=== PATIENT | female | born 1980 | race Caucasian/White ===

== ENCOUNTER → 2016-09-08 | Outpatient (CLI) | payer OTHER ==
[~2016-09-08] MED LIST: ALBUAER2 INH; CETI10TA84 PO; FLUO40CA8 PO; MOME50SP5; OFLO0.3D4 OT; PENC1CRE4 TOP; TIZA4CAP PO; TRAZ50TA35 PO
--- NOTE | 2016-09-08 12:42 | DIAGNOSTIC IMAGING REPORT ---
CT OF THE RIGHT ANKLE PAIN CT DOSE: 161.02 mGy.cm HISTORY: Pain R ANKLE PAIN TECHNIQUE: Multiaxial CT images of the right ankle were performed and reformatted in the sagittal and coronal plane without the use of contrast. COMPARISON: None. FINDINGS: No fracture or dislocation. Soft tissues are unremarkable. All major osseous structures are unremarkable. There is a tiny heel spur. There is no evidence for a tarsal correlation. Subtalar joint is unremarkable. Interosseous ligament appears to be intact. No evidence for loose body. IMPRESSION: Tiny heel spur. Otherwise normal study. Electronically signed by: Bryant Lane M.D. 09/08/2016 12:41 PM Dictated Date/Time: 09/08/2016 12:31 PM
== END | disposition home or self-care (01) ==
LOC: C.CTS 12:04
PROVIDERS: ATTEND Orthopaedic Surgery Sports Medicine
DX: M79.671 Pain in right foot (principal); M77.31 Calcaneal spur, right foot

== ENCOUNTER 2017-10-04 14:15 | Emergency (ER) | payer OTHER ==
[~2017-10-04] VITALS: Ht 160 cm; Wt 64.4 kg
[~2017-10-04 14:15] MED LIST changes: +PENC1CRE33 TOP; -PENC1CRE4 TOP
[2017-10-04 14:18] VITALS: Ht 160 cm; Wt 64.4 kg
--- NOTE | 2017-10-04 15:14 | DIAGNOSTIC IMAGING REPORT ---
TWO VIEW CHEST CLINICAL HISTORY: Cough. FINDINGS: PA and lateral chest radiographs are compared to study dated 08/12/2012 and correlated with chest CT dated 01/29/2009. The cardiomediastinal silhouette is unremarkable. The lungs and pleural spaces are clear. There is no pneumothorax. The bony thorax appears intact. IMPRESSION: No active disease in the chest. Electronically signed by: Иван Wayne M.D. 10/04/2017 3:13 PM Dictated Date/Time: 10/04/2017 3:12 PM
[2017-10-04] MEDS ORDERED: PENI500T2 PO (15:26)
[2017-10-04] MEDS ORDERED: ONDANSETRON HOME PACK 4MG OD TAB PO ONE (15:30)
[2017-10-04] MEDS ORDERED: PENICILLIN V POTASSIUM 250 MG TAB PO ONE (15:30)
[2017-10-04] MEDS ORDERED: ALBUTEROL HFA 8 GM INHALER INH ONE (15:30)
[2017-10-04 16:05] VITALS: BP 121/72; PULSE 72; TEMP 36.7; O2SAT 97
--- NOTE | 2017-10-04 16:34 | EMERGENCY ROOM VISIT NOTE ---
History Report prepared by Ping: Ping Son Under the Supervision of: Dr. Florian Michaud M.D. First contact with patient: 14:20 Chief Complaint: RESPIRATORY PROBLEMS Stated Complaint: CHEST AND THROAT PAIN,NUMB FACE AND HAND History of Present Illness The patient is a 36 year old female who presents to the Emergency Room with complaints of persistent chest tightness starting 2 days ago. The patient reports that she went for a jog 2 days ago outside in the cold. She does not normally jog. Afterwards, she developed sore throat, cough, and chest tightness which has persisted. Yesterday, she started having vomiting and diarrhea with hot and cold flashes which is ongoing today. She is having abdominal cramping. She has numbness in her face, lips, and hands which started today while she was walking. She felt SOB while walking. The symptoms have resolved. She reports pain to her left jaw. She denies any blood in her diarrhea, dental pain, congestion, burning with urination, or ear pain. She denies any sick contacts. She does smoke. Source of History: patient Onset: 2 days ago Position: chest Quality: other (tightness) Timing: other (persistent) Associated Symptoms: + chills, + sorethroat, + cough, + SOB, + vomiting, + abdominal pain, + diarrhea, + numbness, No hematochezia, No urinary symptoms Note: Pt reports left jaw pain. Pt denies dental pain, congestion, ear pain. Review of Systems See HPI for pertinent positives & negatives. A total of 10 systems reviewed and were otherwise negative. Past Medical & Surgical Medical Problems: (1) DEPRESSIVE DISORDER NEC (2) LUMBOSACRAL NEURITIS NOS (3) POSTLAMINECT SYND-LUMBAR Family History No significant family history Social History Smoking Status: Current Every Day Smoker Marital Status: single Occupation Status: disabled Current/Historical Medications Scheduled Penicillin V Potassium (Veetids), 500 MG PO QID Allergies Coded Allergies: Cephalexin (Unverified Allergy, Severe, "BLACKED OUT", 10/04/17) Bacitracin (Unverified Allergy, Intermediate, RASH, 10/04/17) Neomycin (Unverified Allergy, Intermediate, RASH, 10/04/17) Polymyxin B (Unverified Allergy, Intermediate, RASH, 10/04/17) Adhesives (Verified Allergy, Mild, REDDENED RASH, 10/04/17) Latex1 -Allergic Contact Dermititis (Verified Allergy, Mild, rash, 10/04/17) Physical Exam Vital Signs Date Time Temp Pulse Resp B/P (MAP) Pulse Ox O2 Delivery O2 Flow Rate FiO2 10/04/17 14:49 64 20 124/60 97 Room Air 10/04/17 14:41 Room Air 10/04/17 14:18 36.5 98 20 119/69 98 Room Air Physical Exam Constitutional: Vital signs reviewed. Eyes: Pupils are equal round reactive to light. Conjunctiva are noninjected. ENT: Diffuse erythema without exudate or uvular edema or shift. No trismus. Mucous membranes are moist. Neck supple without meningeal signs. Tender cervical lymphadenopathy, especially left sided. Respiratory: Clear to auscultation bilaterally. Breath sounds are equal bilaterally. Cardiovascular: Regular rate and rhythm. No rubs or gallops. GI: Soft, nondistended and nontender. Bowel sounds are present. Musculoskeletal: No peripheral edema. No lower extremity tenderness. Integumentary: No cyanosis. Neurological: The patient is awake and alert. No focal deficits. Psychiatric: Normal affect. Medical Decision & Procedures ER Provider Diagnostic Interpretation: X-ray results as stated below per interpretation by me and the radiologist: TWO VIEW CHEST CLINICAL HISTORY: Cough. FINDINGS: PA and lateral chest radiographs are compared to study dated 08/12/2012 and correlated with chest CT dated 01/29/2009. The cardiomediastinal silhouette is unremarkable. The lungs and pleural spaces are clear. There is no pneumothorax. The bony thorax appears intact. IMPRESSION: No active disease in the chest. Electronically signed by: вИан Wayne M.D. 10/04/2017 3:13 PM Dictated Date/Time: 10/04/2017 3:12 PM Laboratory Results Test 10/04/17 14:37 Date/Time Source Procedure Growth Status 10/04/17 14:27 Throat Group A Streptococcus Screen - Final SPECIMEN POSITIVE FOR GROUP A BETA ST... Complete 10/04/17 14:27 Throat Group A Streptococcus Screen (MAGDY) - Final Complete Laboratory results as reviewed by me. Medications Administered Medications (Trade) Dose Ordered Sig/Raymundo Route Start Time Stop Time Status Last Admin Dose Admin Ondansetron HCl (ZOFRAN ODT 4MG Home Pack) 1 homepack UD ONCE PO 10/04/17 15:30 10/04/17 15:31 DC 10/04/17 16:01 1 HOMEPACK Penicillin V Potassium (Veetids Tab) 500 mg NOW ONCE PO 10/04/17 15:30 10/04/17 15:31 DC 10/04/17 15:38 500 MG Albuterol (Ventolin Hfa Inhaler) 2 puffs NOW ONCE INH 10/04/17 15:30 10/04/17 15:31 DC 10/04/17 15:38 2 PUFFS ECG Per My Interpretation Indication: SOB/dyspnea Rate (beats per minute): 84 Rhythm: normal sinus Findings: other (no ST elevation, no PVC) ED Course 1425: The patient was evaluated in room A9B. A complete history and physical exam was performed. 1437: The patient's strep test is positive. 1446: I reevaluated the patient. I informed her that her strep test is positive. I let her know she will get an X-ray to check for pneumonia. 1519: Upon reevaluation, the patient is resting comfortably. I discussed sivtlana 's findings with her. She says that she is not allergic to penicillin. She verbalized agreement of the treatment plan. She was discharged home. 1530: Albuterol 2 puffs INH, Veetids Tab 500 mg PO, Ondansetron HCl 1 homepack PO. Medical Decision This is a 36-year-old female presents with vomiting, diarrhea, sore throat, chest pain and cough. Differential diagnosis includes strep pharyngitis, bronchitis, pneumonia, foodborne illness, pericarditis. I did perform a limited focused review of portions of the patient's old chart on the electronic medical record. The patient has had no recent pertinent visits to this hospital. I did evaluate the patient as noted above. Patient is presenting with vomiting and diarrhea. She does not have any abdominal tenderness to suggest an acute surgical process. She complains of chest pain with cough and is a smoker. She also has a sore throat with diffuse erythema and tenderness along her jawline due to lymphadenopathy. She did also complain of some paresthesias to her lips and hands but this has resolved. It is unclear whether this may have been related to hyperventilation as she stated she was walking and short of breath at that time. I did advise the patient to stop smoking. I did order a rapid strep test which was positive. I did order and personally review the patient's 12-lead EKG and chest x-ray as described above. Her EKG does not demonstrate any evidence of pericarditis. There is no evidence of acute ischemia. Her chest x-ray shows no evidence of pneumonia. I did discuss the test results with the patient. I did treat the patient with penicillin. She states she is not allergic to penicillin. She was also given a Zofran ODT home pack in case she became nauseated again. She was also given albuterol MDI to help with her cough. She was discharged with a prescription for penicillin. She was advised to follow-up with her doctor and given return instructions as outlined below. Medication Reconcilliation Current Medication List: was personally reviewed by me Blood Pressure Screening Patient's blood pressure: Normal blood pressure Blood pressure disposition: Did not require urgent referral Impression Primary Impression: Strep pharyngitis Additional Impressions: Acute bronchitis Vomiting and diarrhea Scribe Attestation The scribe's documentation has been prepared under my direct and personally reviewed by me in its entirety. I confirm that the note above accurately reflects all work, treatment, procedures, and medical decision making performed by me. Departure Information Dispostion Home / Self-Care Prescriptions Penicillin V Potassium (VEETIDS) 500 Mg Tab 500 MG PO QID, #40 TAB Prov: Florian Michaud M.D. 10/04/17 Referrals Ivy Guzman M.D. (PCP) Forms HOME CARE DOCUMENTATION FORM, IMPORTANT VISIT INFORMATION, WORK / SCHOOL INSTRUCTIONS Patient Instructions Bronchitis Acute, ED Strep Pharyngitis Conf, My [facility] Additional Instructions You have been examined and treated today on an emergency basis only. This is not a substitute for, or an effort to provide, complete comprehensive medical care. It is impossible to recognize and treat all injuries or illnesses in a single emergency department visit. It is therefore important that you follow up closely with your physician. Call as soon as possible for an appointment. Return for worsening symptoms or if you develop an inability to swallow liquids , difficulty breathing or any other concerning symptoms. Problem Qualifiers Additional Impressions: Acute bronchitis Bronchitis organism: unspecified organism Qualified Codes: J20.9 - Acute bronchitis, unspecified
== END 2017-10-04 16:10 | disposition home or self-care (01) ==
LOC: C.EDB 14:16 → C.EDA 16:10
DX: J02.0 Streptococcal pharyngitis (principal); J20.9 Acute bronchitis, unspecified; R11.10 Vomiting, unspecified; R19.7 Diarrhea, unspecified; F32.9 Major depressive disorder, single episode, unspecified; M54.17 Radiculopathy, lumbosacral region; M96.1 Postlaminectomy syndrome, not elsewhere classified; F17.210 Nicotine dependence, cigarettes, uncomplicated; Z88.1 Allergy status to other antibiotic agents; Z88.8 Allergy status to other drugs, medicaments and biological substances; Z91.048 Other nonmedicinal substance allergy status; Z91.040 Latex allergy status

== ENCOUNTER 2017-11-07 15:09 | Emergency (ER) | payer OTHER ==
[~2017-11-07] VITALS: Ht 160 cm; Wt 66.0 kg
[2017-11-07 15:16] VITALS: BP 122/66; PULSE 84; TEMP 36.6; O2SAT 98; Ht 160 cm; Wt 66.0 kg
[2017-11-07] MEDS ORDERED: LIDOCAINE 1% BUFFERED INJ 5 ML VIAL ONE (15:40)
--- NOTE | 2017-11-07 15:51 | EMERGENCY ROOM VISIT NOTE ---
History First contact with patient: 15:19 Chief Complaint: BITE Stated Complaint: TICK BITE, HEAD STUCK IN SKIN History of Present Illness The patient is a 36 year old female who presents to the Emergency Room with complaints of a tick bite to the left lower abdomen. The patient reports that she noticed this morning upon awakening. She believes that she contracted the tick last night. It was not there yesterday afternoon when she showered. The patient reports generalized discomfort at the area, rating her pain a 2 out of 10. Tetanus immunization is up-to-date. The patient is here requesting removal of the tick head. Review of Systems 6 system review was performed and was negative except for pertinent positives and negatives as indicated in history of present illness Past Medical/Surgical History Medical Problems: (1) DEPRESSIVE DISORDER NEC (2) LUMBOSACRAL NEURITIS NOS (3) POSTLAMINECT SYND-LUMBAR Family History No significant family history Social History Smoking Status: Current Every Day Smoker Marital Status: single Occupation Status: disabled Physical Exam Vital Signs Date Time Temp Pulse Resp B/P (MAP) Pulse Ox O2 Delivery O2 Flow Rate FiO2 18 15:16 36.6 84 20 122/66 98 Room Air Physical Exam CONSTITUTIONAL: Healthy and well nourished. Alert and oriented X 3 with positive affect. HEENT: Normocephalic, atraumatic. Pupils equal, round and reactive. GASTROINTESTINAL: Bowel sounds present in all quadrants. Abdomen is soft and nontender to palpation. INTEGUMENTARY: Examination of the left lower quadrant abdomen shows a tick head with no surrounding soft tissue trauma. A minimal amount of erythema is noted. The area is mildly tender to palpation. NEUROLOGIC: No focal neurologic deficits noted. Medical Decision & Procedures Procedure Tick head removal was performed under local anesthesia after receiving verbal consent from the patient. The area was painted with iodine and allowed to dry. Using a small amount of buffered 1% lidocaine, a wheal was applied. The tick head was then elevated using a 27-gauge needle before sharp excision using a # 15 scalpel. The wound was further cleansed and covered with bacitracin. The patient reports a contact allergy to Band-Aids. ED Course Patient history and physical exam were performed. Nurse's notes were reviewed. Vital signs were reviewed and were normal. The patient was advised a literature suggest that the foreign body does not need to be removed. The patient has requested foreign body removal. This was performed under local anesthesia. The patient was advised that the tick was not engaged long enough to elevate her risk for dottie Lyme's disease. She was encouraged to keep the wound clean and covered with an antibiotic ointment until it further heals. Ibuprofen and Tylenol, along with ice as needed for discomfort. She was instructed to watch for any signs of developing infection. The patient was happy with plan of care, voiced understanding of all discharge instructions, and denied any pain at the time of discharge. Medical Decision Medication Reconcilliation Current Medication List: was personally reviewed by me Blood Pressure Screening Patient's blood pressure: Normal blood pressure Impression Primary Impression: Retained tick parts of abdominal wall Departure Information Dispostion Home / Self-Care Forms HOME CARE DOCUMENTATION FORM, IMPORTANT VISIT INFORMATION Patient Instructions My [facility] Additional Instructions Keep wound clean and covered with an antibiotic ointment and bandage for the next few days until the wound completely heals. Intermittently apply ice as needed for swelling and discomfort. Ibuprofen or Tylenol if needed for additional pain relief. Watch for any signs of infection.
== END 2017-11-07 16:02 | disposition home or self-care (01) ==
LOC: C.EDB 15:12 → C.EDD 16:02
DX: S30.861A Insect bite (nonvenomous) of abdominal wall, initial encounter (principal); W57.XXXA Bitten or stung by nonvenomous insect and other nonvenomous arthropods, initial encounter; F17.210 Nicotine dependence, cigarettes, uncomplicated

== ENCOUNTER → 2018-02-24 | Outpatient (CLI) | payer OTHER | END | disposition home or self-care (01) | LOC: C.LABSPEC 16:38 | PROVIDERS: ATTEND Nurse Practitioner Family | DX: R35.0 Frequency of micturition (principal) ==

== ENCOUNTER 2020-05-02 12:53 | Inpatient (IN) ==
--- NOTE | 2020-05-02 13:18 | Emergency Department Note ---
Impression & Plan Diverticulitis, Perforation bowel ED Provider Note NAME: DEVENDRA GLEASON AGE: 39 SEX: F : 1980 ARRIVES VIA: Walk-In INFORMANT: Patient, ED PROVIDER(S): Que Bhakta MD Chief Complaint: Abdominal pain HPI: Does present with concern for abdominal pain. The patient has been seen this is her third visit in the last 3 days. Patient also did have a primary care physician's appointment Dr. Weaver this morning. The patient's blood work from did show white count from 11-17,000. The patient's urinalysis did not appear to be grossly infected. CT of the abdomen pelvis completed on April 30 did show a colitis with left-sided kidney stones. Patient does complain primarily of upper and lower abdominal pain along with right flank pain. The patient was seen in the outpatient setting today where there was noted to be some blood in the urine. LMP on 1016. The patient denies any trauma to the area. The patient is a smoker and occasional marijuana but denies any other drug or alcohol use. The patient denies fevers, chills, chest pains. ROS: See HPI for pertinent positives and negatives. A total of 10 systems were reviewed and otherwise negative. Past medical history: See below Surgical history: See below Social history: See below Physical Exam: GENERAL: Uncomfortable in appearance, in pain EYE EXAM: Normal conjunctiva. PERRL, no anisocoria and EOM's grossly intact w/o pain. NECK: Supple, no nuchal rigidity, no adenopathy, non-tender. No signs of meningismus. LUNGS: Clear to auscultation. Normal chest wall mechanics. HEART: NSR, no MRG. ABDOMEN: Moderate diffuse abdominal discomfort worse in the epigastrium and suprapubic area normo-active bowel sounds, no masses, no rebound or guarding. BACK: Right-sided CVA TTP. SKIN: No rashes and no bruising. UPPER EXTREMITIES: Upper extremities are grossly normal. LOWER EXTREMITIES: Grossly normal, no edema. NEURO EXAM: A&O x3, cranial nerves II-XII grossly intact, normal speech, moves all 4 extremities on command w/o issue. Differential diagnoses: Appendicitis, ovarian cyst, ovarian torsion, ectopic , TOA, PID, infections, diverticulitis, UTI, obstruction, mesenteric ischemia, aortic pathology, inflammatory bowel disease, renal colic, PUD, pancreatitis, biliary pathology, hernia, volvulus, constipation, as well as other pathologies. Course: Patient was seen and evaluated the bedside. Full history physical exam was performed. EKG: None Imaging Studies: Radiology results as stated below per my review in the radiologist's interpretation: CT OF THE ABDOMEN AND PELVIS WITH CONTRAST CLINICAL HISTORY: diffuse ab and R flank pain; L sided stones COMPARISON STUDY: CT of the abdomen and pelvis April 30, 2020. TECHNIQUE: Following IV administration of 95 mL of Optiray-320, axial images of the abdomen and pelvis were obtained from the lung bases to the proximal femurs. Images were reviewed in the axial, sagittal, and coronal planes. IV contrast was administered without complication. Automated exposure control was utilized for the study. A dose lowering technique was utilized adhering to the principles of ALARA. CT DOSE: 293.57 mGy.cm FINDINGS: Left basilar airspace opacity favors atelectasis. There has been interval development of numerous locules of extraluminal gas consistent with a perforated viscus. This finding is new since CT of April 30, 2020. A definitive source is not clear on this exam however perforated diverticulitis is favored. There is mild left lower quadrant infiltration as well as a 1 cm pocket of fluid and gas within the left lower quadrant on image 308 of 416. There is no well-defined rim-enhancing fluid collection. Caliber of the appendix is at the u pper limits of normal. There is no evidence for acute appendicitis. Gas is noted along the lesser curvature of the stomach. Layering hyperdense material within the gallbladder is noted. The liver, spleen, adrenal glands, kidneys and pancreas are unremarkable. There is no evidence for a bowel obstruction. Stopped findings within the spine are noted. The small bowel is mildly dilated and fluid-filled. No transition point is identified. IMPRESSION: 1. Interval development of a small to moderate amount of pneumoperitoneum since CT of April 30, 2020. This indicates a perforated hollow viscus. A definitive source is not identified however perforated diverticulitis is favored given left lower quadrant infiltration and a small pocket of extraluminal gas and fluid. An additional consideration is a perforated gastric ulcer. Surgical consultation is recommended. 2. Fluid-filled mildly dilated small bowel which favors an ileus. No transition point to suggest a bowel obstruction. ACT 112: Negative or not required by law. Electronically signed by: Pradeep Limon M.D. 05/02/2020 3:21 PM Dictated: 05/02/20 1508 Transcribed: 05/02/20 1513 Cardiac monitoring: An order was placed for continuous cardiac monitoring. The monitor shows a rate of 89 with sinus rhythm. MDM: Patient does present with concern for abdominal pain and reported blood in the urine in the outpatient setting. Blood work was obtained along with a urinalysis, test and repeat CT of the abdomen pelvis along with pain and nausea medications. Does have a white count of 18. Kidney function is unremarkable. I did receive a phone call from the radiologist Dr. Braxton MD. There was concern that the patient did have pneumoperitoneum and a likely diverticular perforation and likely location left lower quadrant although this is not necessarily necessarily definitive by CT read. I did speak with the on-call general surgeon Dr. Garo MD. Patient had been ordered Covid test along with Zosyn. I did inform the patient. Patient understood. The patient was subsequently taken to the operati ng room and to be admitted by the general surgeon Dr. Wyman. Past Med/Surg History Medical History (Updated 05/02/20 @ 18:20 by Que Bhakta MD) Asthma Clostridium difficile colitis Diarrhea Laceration of left thumb Surgical History History of spinal fusion Family History Grandmother Breast cancer Myocardial infarction Denies family history of Ovarian cancer Prostate cancer Colorectal cancer Social History Smoking Status: Current every day smoker Tobacco Type: Cigarettes Hx Alcohol Use: No Hx Substance Use: No Preferred Language: Khmer Communication Ability: Effective Visual Impairment: No Limitations Hearing Ability: Normal marital status: Single Current Living Situation: Alone current occupational status: disabled Feels Safe at Home: Yes Childhood Exposure to Second-Hand Smoke: Yes Dental Care, Regularly: Yes Physical Activity Frequency: Does not Exercise Seatbelt Use: always Sunscreen Use: Yes Allergies Allergies Allergy/AdvReac Type Severity Reaction Status Date / Time cephalexin Allergy Severe "BLACKED Verified 05/02/20 15:29 OUT" bacitracin Allergy Intermediate RASH Verified 05/02/20 15:26 neomycin Allergy Intermediate RASH Verified 05/02/20 15:26 polymyxin B Allergy Intermediate RASH Verified 05/02/20 15:26 adhesive Allergy Mild REDDENED Verified 04/30/20 18:55 RASH latex Allergy Mild Rash Verified 04/30/20 18:55 Aminoglycosides Allergy Rash Verified 05/02/20 15:26 Home Meds Home Medications Medication Instructions Recorded Confirmed albuterol sulfate [ProAir HFA] 1 - 2 puff INHALATION Q6H PRN 03/27/19 05/02/20 hydrocodone-acetaminophen [Hurley] 1 tab PO Q8H PRN 05/02/20 05/02/20 ondansetron 4 mg PO Q8H PRN 05/02/20 05/02/20 Previous Rx's Medication Instructions Recorded cyclobenzaprine 10 mg tablet 10 mg PO DAILY PRN #30 tab 08/16/19 Results & Data (ED) Vital Signs Vital Signs - 24 hr 05/02/20 13:06 05/02/20 14:22 05/02/20 14:30 Temperature 36.7 C Temperature Source Oral Pulse Rate 89 91 H 82 Pulse Rate from SpO2 Sensor Respiratory Rate 16 29 H 22 Respiratory Effort / Characteristics Respiratory Depth Respiratory Pattern Blood Pressure 107/65 Blood Pressure [Left Arm] Blood Pressure Mean 79 Blood Pressure Mean [Left Arm] Blood Pressure Position [Left Arm] Pulse Oximetry 100 Oxygen Delivery Method Room Air Sepsis Recent Fever Within 48 Hours No Sepsis New/Unexplained Change in Mental Status N/A Sepsis Action Taken by Nursing No Action Required 05/02/20 14:40 05/02/20 15:03 05/02/20 15:10 Temperature Temperature Source Pulse Rate 81 94 H 92 H Pulse Rate from SpO2 Sensor 99 H 92 H Respiratory Rate 26 H 24 25 H Respiratory Effort / Characteristics Respiratory Depth Respiratory Pattern Blood Pressure Blood Pressure [Left Arm] Blood Pressure Mean Blood Pressure Mean [Left Arm] Blood Pressure Position [Left Arm] Pulse Oximetry 99 98 Oxygen Delivery Method Sepsis Recent Fever Within 48 Hours Sepsis New/Unexplained Change in Mental Status Sepsis Action Taken by Nursing 05/02/20 15:20 05/02/20 15:22 05/02/20 15:23 Temperature Temperature Source Pulse Rate 89 87 92 H Pulse Rate from SpO2 Sensor 89 87 88 Respiratory Rate 24 17 21 Respiratory Effort / Characteristics Respiratory Depth Respiratory Pattern Blood Pressure 141/69 H Blood Pressure [Left Arm] Blood Pressure Mean 74 Blood Pressure Mean [Left Arm] Blood Pressure Position [Left Arm] Pulse Oximetry 97 98 98 Oxygen Delivery Method Sepsis Recent Fever Within 48 Hours Sepsis New/Unexplained Change in Mental Status Sepsis Action Taken by Nursing 05/02/20 15:30 05/02/20 15:31 05/02/20 15:56 Temperature Temperature Source Pulse Rate 82 84 88 Pulse Rate from SpO2 Sensor 86 78 84 Respiratory Rate 28 H 20 20 Respiratory Effort / Characteristics Respiratory Depth Respiratory Pattern Blood Pressure 129/57 L Blood Pressure [Left Arm] Blood Pressure Mean 76 Blood Pressure Mean [Left Arm] Blood Pressure Position [Left Arm] Pulse Oximetry 96 97 98 Oxygen Delivery Method Sepsis Recent Fever Within 48 Hours Sepsis New/Unexplained Change in Mental Status Sepsis Action Taken by Nursing 05/02/20 16:00 05/02/20 16:01 05/02/20 16:10 Temperature Temperature Source Pulse Rate 78 81 72 Pulse Rate from SpO2 Sensor 83 81 75 Respiratory Rate 13 19 17 Respiratory Effort / Characteristics Respiratory Depth Respiratory Pattern Blood Pressure 108/58 L Blood Pressure [Left Arm] Blood Pressure Mean 70 Blood Pressure Mean [Left Arm] Blood Pressure Position [Left Arm] Pulse Oximetry 99 98 97 Oxygen Delivery Method Sepsis Recent Fever Within 48 Hours Sepsis New/Unexplained Change in Mental Status Sepsis Action Taken by Nursing 05/02/20 16:18 05/02/20 16:58 Temperature 36.9 C Temperature Source Oral Pulse Rate Pulse Rate from SpO2 Sensor Respiratory Rate 17 Respiratory Effort / Characteristics Non-Labored Spontaneous Respiratory Depth Normal Respiratory Pattern Regular Blood Pressure Blood Pressure [Left Arm] 112/54 L Blood Pressure Mean Blood Pressure Mean [Left Arm] 73 Blood Pressure Position [Left Arm] Lying Pulse Oximetry 98 Oxygen Delivery Method Room Air Room Air Sepsis Recent Fever Within 48 Hours Sepsis New/Unexplained Change in Mental Status Sepsis Action Taken by [facility] Medications Current Medication List: was personally reviewed by me Laboratory Data Attestation: I reviewed the patient's lab results. Result diagrams: 05/02/20 14:02 05/02/20 14:02 Lab Results 05/02/20 05/02/20 05/02/20 Range/Units 14:02 14:02 14:02 WBC 18.42 H (4.8-10.8) K/uL RBC 4.27 (4.2-5.4) M/uL Hgb 13.4 (12.0-16.0) g/dL Hct 38.9 (37-47) % MCV 91.1 (80-100) fL MCH 31.4 (25-34) pg MCHC 34.4 (32-36) g/dL RDW Std Deviation 42.9 (36.4-46.3) fL RDW Coeff of Hector 12.8 (11.5-14.5) % Plt Count 209 (130-400) K/uL MPV 11.0 H (7.4-10.4) fL Immature Gran % (Auto) 0.3 % Neut % (Auto) 89.4 % Lymph % (Auto) 4.7 % [place] % (Auto) 5.4 % Eos % (Auto) 0.1 % Baso % (Auto) 0.1 % Neut # (Auto) 16.48 H (1.4-6.5) K/uL Lymph # (Auto) 0.87 L (1.2-3.4) K/uL [place] # (Auto) 0.99 H (0.11-0.59) K/uL Eos # (Auto) 0.01 (0-0.5) K/uL Baso # (Auto) 0.01 (0-0.2) K/uL Immature Gran # (Auto) 0.06 H (0.00-0.02) K/uL Sodium 137 (136-145) mmol/L Potassium 3.0 L (3.5-5.1) mmol/L Chloride 105 (98-107) mmol/L Carbon Dioxide 24 (21-32) mmol/L Anion Gap 8.0 (3-11) BUN 7 (7-18) mg/dl Creatinine 0.79 (0.6-1.2) mg/dl Est Cr Clr Drug Dosing 80.7 ml/min Est GFR ( Amer) 110.8 Est GFR (Non-Af Amer) 95.6 BUN/Creatinine Ratio 8.2 L (10-20) Glucose 86 (70-99) mg/dl Calcium 9.0 (8.5-10.1) mg/dl Total Bilirubin 1.0 (0.2-1) mg/dl AST 9 L (15-37) U/L ALT 13 (12-78) U/L Alkaline Phosphatase 54 (45-117) U/L Total Protein 7.5 (6.4-8.2) gm/dl Albumin 3.5 (3.4-5.0) gm/dl Globulin 4.0 (2.5-4.0) gm/dl Albumin/Globulin Ratio 0.9 (0.9-2) Lipase 65 L (73-393) U/L Urine Color Yellow Urine Appearance Clear (Clear) Urine pH 5.0 (4.5-7.5) Ur Specific [place] 1.007 (1.000-1.030) Urine Protein Negative (Negative) Urine Glucose (UA) Negative (Negative) Urine Ketones 2+ H (Negative) Urine Blood Trace H (Negative) Urine Nitrite Negative (Negative) Urine Bilirubin Negative (Negative) Urine Urobilinogen Negative (Negative) Ur Leukocyte Esterase Negative (Negative) Urine RBC 0-4 (0-4) /hpf Urine WBC 0-5 (0-5) /hpf Ur Epithelial Cells >30 H (0-5) /lpf Urine Bacteria Negative (Negative) Urine Test (Negative) COVID-19 Eval Order SARS-CoV-2, RNA, NAAT (NEGATIVE) 05/02/20 05/02/20 05/02/20 Range/Units 14:02 16:05 16:05 WBC (4.8-10.8) K/uL RBC (4.2-5.4) M/uL Hgb (12.0-16.0) g/dL Hct (37-47) % MCV (80-100) fL MCH (25-34) pg MCHC (32-36) g/dL RDW Std Deviation (36.4-46.3) fL RDW Coeff of Hector (11.5-14.5) % Plt Count (130-400) K/uL MPV (7.4-10.4) fL Immature Gran % (Auto) % Neut % (Auto) % Lymph % (Auto) % [place] % (Auto) % Eos % (Auto) % Baso % (Auto) % Neut # (Auto) (1.4-6.5) K/uL Lymph # (Auto) (1.2-3.4) K/uL [place] # (Auto) (0.11-0.59) K/uL Eos # (Auto) (0-0.5) K/uL Baso # (Auto) (0-0.2) K/uL Immature Gran # (Auto) (0.00-0.02) K/uL Sodium (136-145) mmol/L Potassium (3.5-5.1) mmol/L Chloride (98-107) mmol/L Carbon Dioxide (21-32) mmol/L Anion Gap (3-11) BUN (7-18) mg/dl Creatinine (0.6-1.2) mg/dl Est Cr Clr Drug Dosing ml/min Est GFR ( Amer) Est GFR (Non-Af Amer) BUN/Creatinine Ratio (10-20) Glucose (70-99) mg/dl Calcium (8.5-10.1) mg/dl Total Bilirubin (0.2-1) mg/dl AST (15-37) U/L ALT (12-78) U/L Alkaline Phosphatase (45-117) U/L Total Protein (6.4-8.2) gm/dl Albumin (3.4-5.0) gm/dl Globulin (2.5-4.0) gm/dl Albumin/Globulin Ratio (0.9-2) Lipase (73-393) U/L Urine Color Urine Appearance (Clear) Urine pH (4.5-7.5) Ur Specific [place] (1.000-1.030) Urine Protein (Negative) Urine Glucose (UA) (Negative) Urine Ketones (Negative) Urine Blood (Negative) Urine Nitrite (Negative) Urine Bilirubin (Negative) Urine Urobilinogen (Negative) Ur Leukocyte Esterase (Negative) Urine RBC (0-4) /hpf Urine WBC (0-5) /hpf Ur Epithelial Cells (0-5) /lpf Urine Bacteria (Negative) Urine Test Negative (Negative) COVID-19 Eval Order Covid19 IDNow [facility] SARS-CoV-2, RNA, NAAT NEGATIVE (NEGATIVE) Administered Medications Discontinued Medications Sodium Chloride (Nss 1000ml) 1,000 mls @ 999 mls/hr IV .Q1H1M ONE Stop: 05/02/20 14:30 Last Infusion: 05/02/20 15:27 Dose: 0 mls/hr Documented by: [id number] Admin: 05/02/20 14:05 Dose: 999 mls/hr Documented by: [id number] Piperacillin Sod/Tazobactam Sod (Zosyn) 4.5 gm in 120 mls @ 240 mls/hr IV NOW ONE Stop: 05/02/20 15:52 Last Infusion: 05/02/20 16:09 Dose: 0 mls/hr Documented by: [id number] Admin: 05/02/20 15:38 Dose: 240 mls/hr Documented by: [id number] Ioversol (Ioversol 100ml) 95 ml IV ONCE ONE Stop: 05/02/20 14:59 Last Admin: 05/02/20 15:00 Dose: 95 ml Documented by: [id number] Ketorolac Tromethamine (Ketorolac 30 Mg/Ml Vial) 30 mg IV NOW STA Stop: 05/02/20 13:31 Last Admin: 05/02/20 14:05 Dose: 30 mg Documented by: [id number] Morphine Sulfate (Morphine Sulfate 4 Mg/Ml 1 Ml Carp\\Vial) 4 mg IV NOW STA Stop: 05/02/20 13:31 Last Admin: 05/02/20 14:05 Dose: 4 mg Documented by: [id number] Ondansetron HCl (Ondansetron Inj 2 Mg/Ml 2 Ml Vial) 4 mg IV NOW STA Stop: 05/02/20 13:31 Last Admin: 05/02/20 14:05 Dose: 4 mg Documented by: [id number] Vancomycin HCl (Vancomycin Hcl 1000mg/20ml Vial) Confirm Administered Dose 50 mg .ROUTE .STK-MED ONE Stop: 05/02/20 17:54 Last Admin: 05/02/20 18:08 Dose: 50 mg Documented by: [id number] Discharge Plan Visit Data Chief Complaint: Abdominal Pain Stated Complaint: ABD PAIN ED Provider: Que Bhakta Discharge Problem: Diverticulitis, Perforation bowel Patient Disposition: Still a Patient Discharge Instructions Interventions: ED Discharge Assessment Last Done: 05/02/20 16:18
[2020-05-02] MEDS ORDERED: ONDANSETRON INJ 2 MG/ML 2 ML VIAL IV STA (13:30)
[2020-05-02] MEDS ORDERED: SODIUM CHLORIDE 0.9% 1000ML 1,000 ML IV ONE (13:30)
[2020-05-02] MEDS ORDERED: KETOROLAC 30 MG/ML VIAL IV STA (13:30)
[2020-05-02] MEDS ORDERED: MoRPHine SULFATE 4 MG/ML 1 ML CARP\\VIAL IV STA (13:30)
[2020-05-02 14:12] LABS: Basophils # (auto) 0.01 K/uL (0-0.2); Basophils % (auto) 0.1 %; Eosinophils # (auto) 0.01 K/uL (0-0.5); Eosinophils % (auto) 0.1 %; Hematocrit (blood only) 38.9 % (37-47); Hemoglobin 13.4 g/dL (12.0-16.0); Immature Granulocytes # (auto) 0.06 K/uL (0.00-0.02); Immature Granulocytes % (auto) 0.3 %; Lymphocytes # (auto) 0.87 K/uL (1.2-3.4); Lymphocytes % (auto) 4.7 %; Mean Corpuscular Hemoglobin 31.4 pg (25-34); Mean Corpuscular Hgb Conc 34.4 g/dL (32-36); Mean Corpuscular Volume 91.1 fL (80-100); Monocytes # (auto) 0.99 K/uL (0.11-0.59); Monocytes % (auto) 5.4 %; Neutrophils # (auto) 16.48 K/uL (1.4-6.5); Neutrophils % (auto) 89.4 %; Platelet Count 209 K/uL (130-400); RDW Coefficient of Variation 12.8 % (11.5-14.5); RDW Standard Deviation 42.9 fL (36.4-46.3); Red Blood Count 4.27 M/uL (4.2-5.4); White Blood Count 18.42 K/uL (4.8-10.8)
[2020-05-02 14:28] LABS: Albumin Level 3.5 gm/dl (3.4-5.0); BUN Creatinine Ratio 8.2 (10-20); Creatinine Clr Calc Pharmacy 80.7 ml/min; Est GFR (African American) 110.8; Est GFR (Non-African American) 95.6
[2020-05-02 14:31] LABS: Albumin Globulin Ratio 0.9 (0.9-2); Total Protein 7.5 gm/dl (6.4-8.2)
[2020-05-02 14:35] LABS: Appearance Urine Clear (Clear); Bilirubin Urine Negative (Negative); Blood Urine Trace (Negative); Color Urine Yellow; Glucose Urine UA Negative (Negative); Ketones Urine 2+ (Negative); Leukocyte Esterase Urine Negative (Negative); Nitrite Urine Negative (Negative); Protein Urine Negative (Negative); Specific Gravity Urine 1.007 (1.000-1.030); Urobilinogen Urine Negative (Negative)
[2020-05-02 14:54] LABS: Pregnancy Test, Urine Negative (Negative)
[2020-05-02] MEDS ORDERED: IOVERSOL 100ml IV ONE (14:58)
[2020-05-02 15:04] LABS: Bacteria Urine Negative (Negative); Epithelial Cell Urine >30 /lpf (0-5); RBC Urine 0-4 /hpf (0-4); WBC Urine 0-5 /hpf (0-5)
--- NOTE | 2020-05-02 15:22 | CT Scan Report ---
CT OF THE ABDOMEN AND PELVIS WITH CONTRAST CLINICAL HISTORY: diffuse ab and R flank pain; L sided stones COMPARISON STUDY: CT of the abdomen and pelvis April 30, 2020. TECHNIQUE: Following IV administration of 95 mL of Optiray-320, axial images of the abdomen and pelvi s were obtained from the lung bases to the proximal femurs. Images were reviewed in the axial, sagitt al, and coronal planes. IV contrast was administered without complication. Automated exposure contro l was utilized for the study. A dose lowering technique was utilized adhering to the principles of A SHAHANA. CT DOSE: 293.57 mGy.cm FINDINGS: Left basilar airspace opacity favors atelectasis. There has been interval development of nu merous locules of extraluminal gas consistent with a perforated viscus. This finding is new since CT of April 30, 2020. A definitive source is not clear on this exam however perforated diverticulitis is favored. There is mild left lower quadrant infiltration as well as a 1 cm pocket of fluid and gas within the left lower quadrant on image 308 of 416. There is no well-defined rim-enhancing fluid mike ection. Caliber of the appendix is at the upper limits of normal. There is no evidence for acute appe ndicitis. Gas is noted along the lesser curvature of the stomach. Layering hyperdense material within the gallbladder is noted. The liver, spleen, adrenal glands, kidneys and pancreas are unremarkable. There is no evidence for a bowel obstruction. Stopped findings within the spine are noted. The small bowel is mildly dilated and fluid-filled. No transition point is identified. IMPRESSION: 1. Interval development of a small to moderate amount of pneumoperitoneum since CT of April 30 0. This indicates a perforated hollow viscus. A definitive source is not identified however perforate d diverticulitis is favored given left lower quadrant infiltration and a small pocket of extraluminal gas and fluid. An additional consideration is a perforated gastric ulcer. Surgical consultation is r ecommended. 2. Fluid-filled mildly dilated small bowel which favors an ileus. No transition point to suggest a inna wel obstruction. ACT 112: Negative or not required by law. Electronically signed by: Pradeep Limon M.D. 05/02/2020 3:21 PM
[2020-05-02] MEDS ORDERED: PIPERACILL/TAZOBAC CONSULT ACTIVE PRN ×2 (15:23→19:42)
[2020-05-02] MEDS ORDERED: PIPERACILLIN/TAZOBACTAM 4.5 GM/120 ML BAG IV ONE (15:23)
[2020-05-02] MEDS ORDERED: ATROPINE SULFATE 0.1 MG/ML 10ML SYR IV PRN (16:07)
[2020-05-02] MEDS ORDERED: HYDROmorphone INJ 1 MG/ML SYRINGE IV PRN (16:07)
[2020-05-02] MEDS ORDERED: MIDAZOLAM HCL 1 MG/ML 2ML VIAL ONE (16:07)
[2020-05-02] MEDS ORDERED: fentaNYL citrate 100 MCG/2 ML VIAL ONE (16:07)
[2020-05-02] MEDS ORDERED: ePHEDrine sulfate 50 MG/ML AMP IV PRN (16:07)
[2020-05-02] MEDS ORDERED: ONDANSETRON INJ 2 MG/ML 2 ML VIAL IV PRN (16:07)
[2020-05-02] MEDS ORDERED: LIDOCAINE HCL 2% 2 ML VIAL/AMP(20MG/ML) INFIL ONE (16:10)
[2020-05-02] MEDS ORDERED: ROCURONIUM BROMIDE 10 MG/ML 5 ML VIAL IV ONE (16:10)
--- NOTE | 2020-05-02 16:26 | Surgery Consultation ---
Date of Consultation May 02, 2020 Assessment & Plan (1) Abdominal pain, left lower quadrant: (2) Peritonitis, acute generalized: pt is a 39 year-old female who presents to [facility] with one month history acute abdominal pain, IMP: acute abdominal pain, peritonitis, perforation bowel,or GI tract. Plan, I recommend to do emergent exploratory laparotomy possible bowel resection or stoma, D/W benefits, risks and alternatives of the surgery, the risks- infection, bleeding, abscess. sepsis, multiple organs failure, , pt understood, she agrees with the surgery, I answered all questions, Present on Admission?: Yes (3) Bowel perforation: History of Present Illness History of Present Illness Chief Complaint: Abdominal pain HPI: Does present with concern for abdominal pain. The patient has been seen this is her third visit in the last 3 days. Patient also did have a primary care physician's appointment Dr. Weaver this morning. The patient's blood work from is did show white count from 11-17,000. The patient's urinalysis did not appear to be grossly infected. CT of the abdomen pelvis completed on April 30 did show a colitis with left-sided kidney stones. Patient does complain primarily of upper and lower abdominal pain along with right flank pain. The patient was seen in the outpatient setting today where there was noted to be some blood in the urine. LMP on 1016. The patient denies any trauma to the area. The patient is a smoker and occasional marijuana but denies any other drug or alcohol use. The patient denies fevers, chills, chest pains. I ( Lenora Wyman MD ) got a call for consult abdominal free air, I reviewed pt's H/P, labs, CT scan with pt, pt is still have a lot abdominal pain, with diarrhea. ROS: See HPI for pertinent positives and negatives. A total of 10 systems were reviewed and otherwise negative. Past medical history: See below Surgical history: See below Social history: See below Physical Exam: GENERAL: Uncomfortable in appearance, in pain EYE EXAM: Normal conjunctiva. PERRL, no anisocoria and EOM's grossly intact w/o pain. NECK: Supple, no nuchal rigidity, no adenopathy, non-tender. No signs of mening ismus. LUNGS: Clear to auscultation. Normal chest wall mechanics. HEART: NSR, no MRG. ABDOMEN: Moderate diffuse abdominal discomfort worse in the epigastrium and suprapubic area normo-active bowel sounds, no masses, no rebound or guarding. BACK: Right-sided CVA TTP. SKIN: No rashes and no bruising. UPPER EXTREMITIES: Upper extremities are grossly normal. LOWER EXTREMITIES: Grossly normal, no edema. NEURO EXAM: A&O x3, cranial nerves II-XII grossly intact, normal speech, moves all 4 extremities on command w/o issue. Differential diagnoses: Appendicitis, ovarian cyst, ovarian torsion, ectopic p regnancy, TOA, PID, infections, diverticulitis, UTI, obstruction, mesenteric ischemia, aortic pathology, inflammatory bowel disease, renal colic, PUD, pancreatitis, biliary pathology, hernia, volvulus, constipation, as well as other pathologies. Course: Patient was seen and evaluated the bedside. Full history physical exam was performed. EKG: None Imaging Studies: Radiology results as stated below per my review in the radiologist's interpretation: Cardiac monitoring: An order was placed for continuous cardiac monitoring. The monitor shows a rate of 89 with sinus rhythm. MDM: Patient does present with concern for abdominal pain and reported blood in the urine in the outpatient setting. Blood work was obtained along with a urinalysis, test and repeat CT of the abdomen pelvis along with pain and nausea medications. Past Med/Surg History Medical History Clostridium difficile colitis Diarrhea Laceration of left thumb Surgical History History of spinal fusion Family History Grandmother Breast cancer Myocardial infarction Denies family history of Ovarian cancer Prostate cancer Colorectal cancer Social History Smoking Status: Current every day smoker Tobacco Type: Cigarettes Hx Alcohol Use: No Hx Substance Use: No Preferred Language: [place] Citizen Communication Ability: Effective Visual Impairment: No Limitations Hearing Ability: Normal marital status: Single Current Living Situation: Alone current occupational status: disabled Feels Safe at Home: Yes Childhood Exposure to Second-Hand Smoke: Yes Dental Care, Regularly: Yes Physical Activity Frequency: Does not Exercise Seatbelt Use: always Sunscreen Use: Yes Allergies Allergies Allergy/AdvReac Type Severity Reaction Status Date / Time cephalexin Allergy Severe "BLACKED Verified 04/30/20 18:55 OUT" bacitracin Allergy Intermediate RASH Verified 04/30/20 18:55 neomycin Allergy Intermediate RASH Verified 04/30/20 18:55 polymyxin B Allergy Intermediate RASH Verified 04/30/20 18:55 adhesive Allergy Mild REDDENED Verified 04/30/20 18:55 RASH latex Allergy Mild Rash Verified 04/30/20 18:55 Aminoglycosides AdvReac Unknown Uncoded 05/02/20 11:55 Zjeawif-Faugjkog-Ioxzucsol-HC AdvReac Unknown Uncoded 05/02/20 11:55 Cephalosporins AdvReac Unknown Uncoded 05/02/20 11:55 Home Meds Home Medications Medication Instructions Recorded Confirmed albuterol sulfate [ProAir HFA] 1 - 2 puff INHALATION Q6H PRN 03/27/19 05/02/20 Previous Rx's Medication Instructions Recorded cyclobenzaprine 10 mg tablet 10 mg PO DAILY PRN #30 tab 08/16/19 hydrocodone-acetaminophen [[place]] 1 tab PO Q8H PRN #9 tab 04/30/20 ondansetron 4 mg PO Q8H PRN #10 tab 04/30/20 Results & Data (ED) Vital Signs Vital Signs - 24 hr 05/02/20 13:06 Temperature 36.7 C Temperature Source Oral Pulse Rate 89 Respiratory Rate 16 Blood Pressure 107/65 Blood Pressure Mean 79 Pulse Oximetry 100 Oxygen Delivery Method Room Air Sepsis Recent Fever Within 48 Hours No Sepsis New/Unexplained Change in Mental Status N/A Sepsis Action Taken by Nursing No Action Required Home Medications Current Medication List: was personally reviewed by me Laboratory Data Attestation: I reviewed the patient's lab results. Allergies Allergy/AdvReac Type Severity Reaction Status Date / Time cephalexin Allergy Severe "BLACKED Verified 05/02/20 15:29 OUT" bacitracin Allergy Intermediate RASH Verified 05/02/20 15:26 neomycin Allergy Intermediate RASH Verified 05/02/20 15:26 polymyxin B Allergy Intermediate RASH Verified 05/02/20 15:26 adhesive Allergy Mild REDDENED Verified 04/30/20 18:55 RASH latex Allergy Mild Rash Verified 04/30/20 18:55 Aminoglycosides Allergy Rash Verified 05/02/20 15:26 Home Medications Home Medications Medication Instructions Recorded Confirmed Type albuterol sulfate [ProAir HFA] 1 - 2 puff INHALATION Q6H PRN 03/27/19 05/02/20 History cyclobenzaprine 10 mg tablet 10 mg PO DAILY PRN #30 tab 08/16/19 05/02/20 Rx hydrocodone-acetaminophen [[place]] 1 tab PO Q8H PRN 05/02/20 05/02/20 History ondansetron 4 mg PO Q8H PRN 05/02/20 05/02/20 History Patient History Medical History (Updated 05/02/20 @ 16:30 by Ruchi Wyman MD) Clostridium difficile colitis Diarrhea Laceration of left thumb Surgical History History of spinal fusion Family History Grandmother Breast cancer Myocardial infarction Denies family history of Ovarian cancer Prostate cancer Colorectal cancer Social History Smoking Status: Current every day smoker Tobacco Type: Cigarettes Hx Alcohol Use: No Hx Substance Use: No Preferred Language: [place] Citizen Communication Ability: Effective Visual Impairment: No Limitations Hearing Ability: Normal marital status: Single Current Living Situation: Alone current occupational status: disabled Feels Safe at Home: Yes Childhood Exposure to Second-Hand Smoke: Yes Dental Care, Regularly: Yes Physical Activity Frequency: Does not Exercise Seatbelt Use: always Sunscreen Use: Yes Review of Systems Review of Systems: All systems reviewed & are unremarkable except as noted in HPI & below Constitutional: as per Subjective / HPI Eyes: as per Subjective / HPI Ear, Nose, Mouth, Throat: as per Subjective / HPI Respiratory: as per Subjective / HPI marijuana use Cardiovascular: as per Subjective / HPI Gastrointestinal: as per Subjective / HPI Genitourinary: as per Subjective / HPI Musculoskeletal: as per Subjective / HPI back pain Integumentary: as per Subjective / HPI Neurologic: as per Subjective / HPI Psychiatric: as per Subjective / HPI depression Endocrine: as per Subjective / HPI Hematologic / Lymphatic: as per Subjective / HPI Physical Exam Constitutional: WD/WN, vitals as above well developed, well nourished, + acute distress and + ill appearing Eyes: PERRL, conjunctivae normal, anicteric sclerae ENMT: external ear and nose normal, oropharynx normal Neck: trachea midline, no thyromegaly Respiratory: normal respiratory effort, lungs clear to auscultation Cardiovascular: RRR, no murmur, no edema Rate/Rhythm: regular rate and regular rhythm Heart Sounds: normal S1 and normal S2 Gastrointestinal (Abdomen): diffuse tenderness on abdomen, with rebound pain, mild distend, BS - Musculoskeletal: no cyanosis or clubbing, extremities motor strength 5/5 Skin: no rashes, warm and dry Neurologic: awake Psychiatric: Orientation: alert and oriented x 3 Results & Data ([facility]) Vital Signs (Past 12 Hours) Vital Signs Temp Pulse Resp BP Pulse Ox 05/02/20 16:10 72 17 97 05/02/20 16:01 81 19 108/58 L 98 05/02/20 16:00 78 13 99 05/02/20 15:56 88 20 98 05/02/20 15:31 84 20 129/57 L 97 05/02/20 15:30 82 28 H 96 05/02/20 15:23 92 H 21 98 05/02/20 15:22 87 17 141/69 H 98 05/02/20 15:20 89 24 97 05/02/20 15:10 92 H 25 H 98 05/02/20 15:03 94 H 24 99 05/02/20 14:40 81 26 H 05/02/20 14:30 82 22 05/02/20 14:22 91 H 29 H 05/02/20 13:06 36.7 C 89 16 107/65 100 Laboratory Results Abnormal lab results 05/02/20 05/02/20 05/02/20 Range/Units 14:02 14:02 14:02 WBC 18.42 H (4.8-10.8) K/uL MPV 11.0 H (7.4-10.4) fL Neut # (Auto) 16.48 H (1.4-6.5) K/uL Lymph # (Auto) 0.87 L (1.2-3.4) K/uL [place] # (Auto) 0.99 H (0.11-0.59) K/uL Immature Gran # (Auto) 0.06 H (0.00-0.02) K/uL Potassium 3.0 L (3.5-5.1) mmol/L BUN/Creatinine Ratio 8.2 L (10-20) AST 9 L (15-37) U/L Lipase 65 L (73-393) U/L Urine Ketones 2+ H (Negative) Urine Blood Trace H (Negative) Ur Epithelial Cells >30 H (0-5) /lpf Diagnostic Findings CT OF THE ABDOMEN AND PELVIS WITH CONTRAST CLINICAL HISTORY: diffuse ab and R flank pain; L sided stones COMPARISON STUDY: CT of the abdomen and pelvis April 30, 2020. TECHNIQUE: Following IV administration of 95 mL of Optiray-320, axial images of the abdomen and pelvis were obtained from the lung bases to the proximal femurs. Images were reviewed in the axial, sagittal, and coronal planes. IV contrast was administered without complication. Automated exposure control was utilized for the study. A dose lowering technique was utilized adhering to the principles of ALARA. CT DOSE: 293.57 mGy.cm FINDINGS: Left basilar airspace opacity favors atelectasis. There has been interval development of numerous locules of extraluminal gas consistent with a perforated viscus. This finding is new since CT of April 30, 2020. A defin itive source is not clear on this exam however perforated diverticulitis is favored. There is mild left lower quadrant infiltration as well as a 1 cm pocket of fluid and gas within the left lower quadrant on image 308 of 416. There is no well-defined rim-enhancing fluid collection. Caliber of the appendix is at the upper limits of normal. There is no evidence for acute appendicitis. Gas is noted along the lesser curvature of the stomach. Layering hyperdense material within the gallbladder is noted. The liver, spleen, adrenal glands, kidneys and pancreas are unremarkable. There is no evidence for a bowel obstruction. Stopped findings within the spine are noted. The small bowel is mildly dilated and fluid-filled. No transition point is identified. IMPRESSION: 1. Interval development of a small to moderate amount of pneumoperitoneum since CT of April 30, 2020. This indicates a perforated hollow viscus. A definitive source is not identified however perforated diverticulitis is favored given left lower quadrant infiltration and a small pocket of extraluminal gas and fluid. An additional consideration is a perforated gastric ulcer. Surgical consultation is recommended. 2. Fluid-filled mildly dilated small bowel which favors an ileus. No transition point to suggest a bowel obstruction.
--- NOTE | 2020-05-02 16:34 | History & Physical Bridge Note ---
Date of Service May 02, 2020 History & Physical Bridge Note I have examined the patient, reviewed the History & Physical and in the interval since the performance of the History & Physical I have noted the following changes of clinical significance: no changes noted
--- NOTE | 2020-05-02 16:52 | Anesthesiology Consultation ---
Date of Service May 02, 2020 Assessment & Plan (1) Encounter for pre-operative examination: Chart Review Chart Review: Acceptable Risk for Surgery Consults Requested none ASA [id number] Proposed Anesthesia Anesthesia Type: General Risk / Benefits Reviewed With: PT / POA / Parent / Guardian, Accepts Plan and Informed Consent Obtained History Surgery Operation Date: 05/02/20 07:00 Proposed Procedures p Exploratory Laparotomy, Possible Perforated Bowel - Ruchi Wyman MD Height/Weight Height: 5 ft 3 in Weight: 61 kg Allergies Allergy/AdvReac Type Severity Reaction Status Date / Time cephalexin Allergy Severe "BLACKED Verified 05/02/20 15:29 OUT" bacitracin Allergy Intermediate RASH Verified 05/02/20 15:26 neomycin Allergy Intermediate RASH Verified 05/02/20 15:26 polymyxin B Allergy Intermediate RASH Verified 05/02/20 15:26 adhesive Allergy Mild REDDENED Verified 04/30/20 18:55 RASH latex Allergy Mild Rash Verified 04/30/20 18:55 Aminoglycosides Allergy Rash Verified 05/02/20 15:26 Medications Home Medications Medication Instructions Recorded Confirmed Last Taken albuterol sulfate [ProAir HFA] 1 - 2 puff INHALATION Q6H PRN 03/27/19 05/02/20 Unknown cyclobenzaprine 10 mg tablet 10 mg PO DAILY PRN #30 tab 08/16/19 05/02/20 Unknown hydrocodone-acetaminophen [[place]] 1 tab PO Q8H PRN 05/02/20 05/02/20 Unknown ondansetron 4 mg PO Q8H PRN 05/02/20 05/02/20 Unknown NPO Date Last Intake of Fluids: 05/02/20 Time Last Intake of Fluids: 13:00 Date Last Intake of Solids: 05/02/20 Time Last Intake of Solids: 11:00 Past Medical History Medical History (Updated 05/02/20 @ 16:52 by Vijay Hogan DO) Asthma Clostridium difficile colitis Diarrhea Laceration of left thumb Exercise / Class Metabolic Activity II 4-5 Yardwork/Stairs/Walk up hill Past Family History Family History Grandmother Breast cancer Myocardial infarction Denies family history of Ovarian cancer Prostate cancer Colorectal cancer Past Surgical History Surgical History History of spinal fusion Past Anesthesia History No Hx of Anesthesia Complications and No Family Hx of Anesthesia Complications History of PONV No Hx of PONV and No Hx of Motion Sickness Social History Smoking Status: Current every day smoker Hx Alcohol Use: No Hx Substance Use: No Physical Exam Vital Signs Last Vital Signs Temp 98.1 F 05/02/20 13:06 Pulse 72 05/02/20 16:10 Resp 17 05/02/20 16:10 BP 108/58 L 05/02/20 16:01 Pulse Ox 97 05/02/20 16:10 ENMT Mouth: no dentition abnormality Thyromental Distance: > or= 3.5 Finger Breadths Mallampati Class: II Neck normal visual inspection Respiratory normal respiratory effort Auscultation: lungs clear to auscultation bilaterally Cardiovascular Rate/Rhythm: regular rate and regular rhythm Testing Laboratory Results 05/02/20 14:02 05/02/20 14:02 Urine Color Yellow 05/02/20 14:02 Urine Appearance Clear (Clear) 05/02/20 14:02 Urine pH 5.0 (4.5-7.5) 05/02/20 14:02 Ur Specific [place] 1.007 (1.000-1.030) 05/02/20 14:02 Urine Protein Negative (Negative) 05/02/20 14:02 Urine Glucose (UA) Negative (Negative) 05/02/20 14:02 Urine Ketones 2+ (Negative) H 05/02/20 14:02 Urine Nitrite Negative (Negative) 05/02/20 14:02 Ur Leukocyte Esterase Negative (Negative) 05/02/20 14:02 Urine RBC 0-4 /hpf (0-4) 05/02/20 14:02 Urine WBC 0-5 /hpf (0-5) 05/02/20 14:02 Ur Epithelial Cells >30 /lpf (0-5) H 05/02/20 14:02 Urine Test Negative (Negative) 05/02/20 14:02 05/02/20 14:02 Urine Test Negative
[2020-05-02] MEDS ORDERED: LIDOCAINE HCL 1% 20 ML VIAL ONE (17:03)
[2020-05-02] MEDS ORDERED: BUPIVACAINE 0.5 % 5 MG/1 ML MPF 30ML VIAL ONE (17:03)
[2020-05-02] MEDS ORDERED: SCOPOLAMINE 1.5 MG TDSY TD ONE (17:08)
[2020-05-02] MEDS ORDERED: SUCCINYLCHOLINE CHLORIDE 20 MG/ML 10 ML VIAL IV ONE (17:43)
[2020-05-02] MEDS ORDERED: DEXAMETHASONE SOD INJ 4 MG/ML VIAL ONE (17:43)
[2020-05-02] MEDS ORDERED: PROPOFOL IV EMULSION 10 MG/ML 20 ML VIAL IV ONE (17:43)
[2020-05-02] MEDS ORDERED: VANCOMYCIN HCL 1000MG/20ML VIAL ONE (17:53)
[2020-05-02] MEDS ORDERED: HYDROmorphone INJ 2 MG/ML SYR/VIAL ONE (18:01)
[2020-05-02] MEDS ORDERED: NEOSTIGMINE METHYLSULFATE 5 MG/5 ML SYR ONE (18:04)
[2020-05-02] MEDS ORDERED: GLYCOPYRROLATE 0.2 MG/ML VIAL ONE ×2 (18:04→18:05)
--- NOTE | 2020-05-02 18:27 | Post Operative Brief Note ---
Immediate Post Op Note v1 Date of Surgery May 02, 2020 Pre & Post Diagnosis Operation Date: 05/02/20 07:00 Pre-Op Diagnosis: Abdominal pain, peritonitis Post-Op Diagnosis: Abdominal pain, peritonitis, abdominal abscess I identified the patient and participated in the time-out.: Yes Procedure Operation Date: 05/02/20 07:00 Actual Procedures p Exploratory Laparotomy, Drainage of intra-abdominal abcsess(Not Applicable) - Ruchi Wyman MD Surgeon Ruchi Wyman MD Ip/Mosaic Technician surgical elastic knitter Estimated Blood Loss 10 Findings Consistent with Post-Op Diagnosis peritonitis, abdominal cavity abscess, possible from rupture left ovary Fluids 1000ml Specimens peritoneal fluid culture Drains Dickerson Catheter (16 fr dickerson latex free catheter inserted by Severino, clear yellow urine for return) and Jim-Dorado Drain (10 flat) Anesthesia Type General Complications none Disposition Accompanied Patient To Recovery: Yes Disposition: Recovery Room Overlapping Procedure I was immediately available: during the entire case.
[2020-05-02] MEDS: fentaNYL citrate 100 MCG/2 ML VIAL IV PRN ×4 (18:46→19:01)
--- NOTE | 2020-05-02 19:13 | Anesthesiology Progress Note ---
Date of Service May 02, 2020 Anesthesia Post Procedure Vital Signs Vital Signs: Temp Pulse Pulse Resp BP BP Pulse Ox 05/02/20 19:05 63 12 114/54 L 97 05/02/20 18:55 70 15 107/45 L 97 05/02/20 18:45 83 26 H 122/90 100 05/02/20 18:36 97.9 F 86 15 131/66 100 05/02/20 16:58 98.4 F 17 112/54 L 98 05/02/20 16:10 72 17 97 05/02/20 16:01 81 19 108/58 L 98 05/02/20 16:00 78 13 99 05/02/20 15:56 88 20 98 05/02/20 15:31 84 20 129/57 L 97 05/02/20 15:30 82 28 H 96 05/02/20 15:23 92 H 21 98 05/02/20 15:22 87 17 141/69 H 98 05/02/20 15:20 89 24 97 05/02/20 15:10 92 H 25 H 98 05/02/20 15:03 94 H 24 99 05/02/20 14:40 81 26 H 05/02/20 14:30 82 22 05/02/20 14:22 91 H 29 H 05/02/20 13:06 98.1 F 89 16 107/65 100 Pain Intensity Abdomen: Pain Intensity: 4 Transfer of Care Handoff Completed per policy Notes Mental Status: alert / awake / arousable and participated in evaluation Patient Amnestic to Procedure: Yes Nausea / Vomiting: adequately controlled Pain: adequately controlled Airway Patency, RR, SpO2: stable & adequate BP & HR: stable & adequate Hydration State: stable & adequate Anesthetic Complications: no major complications apparent and Pt Satisfied with anesthetic care
[2020-05-02] MEDS ORDERED: NORCO 5/325MG HOMEPACK PO PRN (19:42)
--- NOTE | 2020-05-02 20:08 | Operative Report (OR) ---
DATE OF OPERATION: 05/02/2020 PREOPERATIVE DIAGNOSES: Peritonitis, acute abdominal pain, possible bowel perforation. POSTOPERATIVE DIAGNOSES: Peritonitis, abdominal cavity abscess. OPERATIVE PROCEDURE: Exploratory laparotomy, drainage of abdominal abscess. SURGEON: Ruchi Wyman MD. ANESTHESIA: General. ESTIMATED BLOOD LOSS: About 10 mL. FINDINGS: Abdominal abscess size about 2 x 3 cm around the left-sided ovary. COMPLICATIONS: None. INDICATIONS FOR THE PROCEDURE: This is a 39-year-old female who presented to the ED with 1-month history of severe abdominal pain and the patient had a CT scan, which found the patient has some free air, possible perforated bowel and I recommended to do the exploratory laparotomy, possible bowel resection, possible stoma. I did talk to the patient about the benefit, the risk, alternate procedure. I indicated the risks may include but not limited to such as bleeding, infection, sepsis, multiple organ failure, bowel obstruction, incisional hernia, even . The patient understands. She signed informed consent and I answered all questions. DETAILS OF PROCEDURE: We brought the patient to the OR, put the patient in the supine position. The patient received SCD on bilateral legs to prevent DVT. Also, patient received 3.375 grams of Zosyn IV for prophylactic antibiotic. The patient received general anesthesia without difficulty. Also, patient received a Connor catheter insertion. Abdomen was prepped and draped in routine sterile fashion. After timeout, I made a midline incision, opened fascia and opened peritoneum getting in the abdomen without difficulty. Once we got in the abdomen, there was some pus around the lower abdominal area, so we mobilized the abdomen, found the patient had a small abscess about 2 x 3 cm around the left-sided ovary. Once we opened the abscess, there was some pus coming out and most likely the patient's abscess source has come from the ruptured ovary. there was some pus around it, the left ovary size about 2.5x2.5cm, I did not see any tumor or significant necrosis on left ovary, and we tried to consult the GEOSPATIAL INFORMATION TECHNOLOGIST doctor in the OR, but the GEOSPATIAL INFORMATION TECHNOLOGIST doctor is on the . At this time, I did not see any need for more resection at this moment, we will consult the GEOSPATIAL INFORMATION TECHNOLOGIST doctor. Also, we explored the patient's upper abdomen and right lower quadrant area. The patient has normal appendix, normal small bowel and large bowel. We did not find any bowel perforation at this moment. Again, the infection source has mostly come from the ruptured left-sided ovary. At this moment, we used 1 L of warm saline with 1 gram of vancomycin to flush the abdomen. Then, we put one 10 mm LAN drainage to drain the left-sided abdominal cavity and used 0 nylon, fixed the LAN drain on the skin and hemostasis obtained. Now I closed the fascial layer by using #1 PDS continuous running, closed subcutaneous layer by using 2-0 Vicryl continuous running, closed skin by using staple. Then, we put the dressing on. The patient tolerated the procedure well. All instrument, needle and sponge count were correct x2 at the end of the case. The patient was transferred to recovery room in stable condition. The abdominal fluid and pus were sent as wound culture. After the procedure, I did talk to the patient's mom about the OR finding and the procedure we did, she understands. I attest to the content of the Intraoperative Record and any orders documented therein. Any exceptions are noted below. SHRUTHI
[2020-05-02] MEDS ORDERED: ALBUTEROL HFA 8 GM INHALER INH PRN (20:09)
[2020-05-02] MEDS: HYDROmorphone INJ 1 MG/ML SYRINGE IV PRN ×2 (20:11→23:54)
[2020-05-02] MEDS: LACTATED RINGER'S 1,000 ML IV SCH (20:12)
[2020-05-02] MEDS: ONDANSETRON 4 MG OD TAB PO PRN (21:59)
[2020-05-02] MEDS: PIPERACILLIN/TAZOBACTAM 3.375 GM in DEXTROSE 5% 100 ML IV SCH (21:59)
[2020-05-02] MEDS: oxyCODONE/ACETAMINOPHEN 5mg/325mg TAB PO PRN (22:00)
[2020-05-03] MEDS ORDERED: diphenhydrAMINE Capsule 25 MG CAP PO PRN (03:39)
[2020-05-03] MEDS ORDERED: diphenhydrAMINE Capsule 25 MG CAP ONE (03:49)
[2020-05-03] MEDS: LACTATED RINGER'S 1,000 ML IV SCH ×2 (03:50→13:24)
[2020-05-03] MEDS: oxyCODONE/ACETAMINOPHEN 5mg/325mg TAB PO PRN ×4 (04:25→23:24)
[2020-05-03] MEDS: PIPERACILLIN/TAZOBACTAM 3.375 GM in DEXTROSE 5% 100 ML IV SCH ×3 (05:01→22:11)
[2020-05-03 07:25] LABS: Hematocrit (blood only) 34.4 % (37-47); Hemoglobin 11.8 g/dL (12.0-16.0); Immature Granulocytes # (auto) 0.02 K/uL (0.00-0.02); Immature Granulocytes % (auto) 0.1 %; Lymphocytes # (auto) 0.55 K/uL (1.2-3.4); Lymphocytes % (auto) 4.1 %; Mean Corpuscular Hgb Conc 34.3 g/dL (32-36); Mean Corpuscular Volume 90.3 fL (80-100); Monocytes # (auto) 0.55 K/uL (0.11-0.59); Monocytes % (auto) 4.1 %; Neutrophils # (auto) 12.35 K/uL (1.4-6.5); Neutrophils % (auto) 91.7 %; Platelet Count 174 K/uL (130-400); RDW Coefficient of Variation 12.8 % (11.5-14.5); RDW Standard Deviation 42.1 fL (36.4-46.3); Red Blood Count 3.81 M/uL (4.2-5.4); White Blood Count 13.47 K/uL (4.8-10.8)
[2020-05-03] MEDS: HYDROmorphone INJ 1 MG/ML SYRINGE IV PRN ×3 (07:46→22:29)
[2020-05-03 08:05] LABS: Albumin Globulin Ratio 0.8 (0.9-2); Albumin Level 2.7 gm/dl (3.4-5.0); BUN Creatinine Ratio 8.9 (10-20); Bilirubin,Total 0.6 mg/dl (0.2-1); Calcium 8.5 mg/dl (8.5-10.1); Creatinine Clr Calc Pharmacy 88.5 ml/min; Globulin 3.6 gm/dl (2.5-4.0); Potassium 3.6 mmol/L (3.5-5.1); Total Protein 6.3 gm/dl (6.4-8.2)
--- NOTE | 2020-05-03 10:38 | Progress Note ---
Date of Service pt is doing better, less abdominal pain, no fever, not pass gas yet, LAN 140ml May 03, 2020 Assessment & Plan (1) Abdominal pain, left lower quadrant: (2) Peritonitis, acute generalized: pt is a 39 year-old female who presents to Er with one month history acute abdominal pain, IMP: acute abdominal pain, peritonitis, perforation bowel,or GI tract. Plan, I recommend to do emergent exploratory laparotomy possible bowel resection or stoma, D/W benefits, risks and alternatives of the surgery, the risks- infection, bleeding, abscess. sepsis, multiple organs failure, , pt understood, she agrees with the surgery, I answered all questions, 05/03/2020 10 : 36AM doing better, WBC down to 13,000. i update information about OR finding and procedure pt had, pt understood, I answered all questions, continue treatment, OOB, repeat labs in am, will F/U (3) Bowel perforation: Admission and Anticipated Discharge Date Admission Date: May 02, 2020 Review of Systems Constitutional: as per Subjective / HPI Eyes: as per Subjective / HPI Ear, Nose, Mouth, Throat: as per Subjective / HPI Respiratory: as per Subjective / HPI marijuana use Cardiovascular: as per Subjective / HPI Gastrointestinal: as per Subjective / HPI Genitourinary: as per Subjective / HPI Musculoskeletal: as per Subjective / HPI back pain Integumentary: as per Subjective / HPI Neurologic: as per Subjective / HPI Psychiatric: as per Subjective / HPI depression Endocrine: as per Subjective / HPI Hematologic / Lymphatic: as per Subjective / HPI Physical Exam Constitutional: WD/WN, vitals as above well developed, well nourished, + acute distress and + ill appearing Eyes: PERRL, conjunctivae normal, anicteric sclerae ENMT: external ear and nose normal, oropharynx normal Neck: trachea midline, no thyromegaly Respiratory: normal respiratory effort, lungs clear to auscultation Cardiovascular: RRR, no murmur, no edema Rate/Rhythm: regular rate and regular rhythm Heart Sounds: normal S1 and normal S2 Gastrointestinal (Abdomen): Percussion/Palpation: abdomen soft mild tenderness at abdomen, no rebound pain, no distend, BS + Musculoskeletal: no cyanosis or clubbing, extremities motor strength 5/5 Skin: no rashes, warm and dry Neurologic: awake Psychiatric: Orientation: alert and oriented x 3 Results & Data ([facility]) Vital Signs (Past 12 Hours) Vital Signs Temp Pulse Resp BP Pulse Ox 05/03/20 07:28 36.3 C L 54 L 18 92/54 L 96 05/03/20 03:55 36.6 C 54 L 20 102/65 96 05/02/20 23:55 36.5 C 69 20 104/62 97
[2020-05-03] MEDS: PANTOprazole 40 MG in SYRINGE 0 ML IV SCH (11:40)
[2020-05-03] MEDS: ONDANSETRON 4 MG OD TAB PO PRN ×2 (11:48→23:24)
[2020-05-03] MEDS ORDERED: Nursing to Pharmacy Communication SCH (22:30)
[2020-05-03] MEDS ORDERED: ALBUT/IPRATROP 3MG/0.5MG NEB 3 ML VIAL NEB STA (22:39)
--- NOTE | 2020-05-04 03:02 | Hospitalist Consultation ---
Date of Consultation May 04, 2020 Assessment & Plan (1) Diverticulitis: (2) Asthma: 39yo female with a PMHx of migraines, diverticulitis, asthma and depression who is s/p exploratory lap on 05/02/2020 with noted ruptured L ovary and abdominal abscess. Abdominal abscess in setting of ruptured L ovary -pt states she has abdominal pain whenever she coughs, well controlled otherwise -No BM or flatus yet -clear liquid diet, tolerating well -management per surgical team -consider consult to LITHOGRAPH PRINTER Asthma -pt states she uses a home albuterol inhaler as needed for SOB/wheezing -on exam she has diffuse expiratory wheezes, no acute distress -Of note, she is a smoker of 1/2 a ppd -consider smoking cessation- pt declines nicotine patch while hospitalized -states she was told she might have a component of COPD -duonebs ordered q4h prn -continue use of incentive spirometer Hx of alcohol abuse -Pt states she recently "quit drinking" about a month ago -while hospitalized monitor for signs of withdrawal Muscle spasm -continue home cyclobenzaprine PRN Migraines -stable Depression -stable, not on medication FEN/GI: Clear liquids DVT prophylaxis: SCDs CODE STATUS: Full code (3) Peritonitis, acute generalized: (4) Depressive disorder, not elsewhere classified: (5) Postlaminectomy syndrome, lumbar: Supervising Physician Co-Signing Physician Notes Attending addendum: I have physically seen this patient, have supervised the medical residents activities, and agree with the H&P unless as otherwise noted. Assessment and Plan: Asthma/Tobacco use disorder- Duonebs every 4 hours while awake and every 2 hours when necessary. Every 4 hours as needed Incentive spirometry Smoking cessation counseling Abdominal abscess/ruptured left ovary- Seen postoperatively medically stable. History of alcohol abuse- Monitor for signs of withdrawal Remainder of orders and notations as noted History of Present Illness Attending Physician: Ruchi Wyman MD History of Present Illness 39yo female with a PMHx of migraines, diverticulitis, asthma and depression who is s/p exploratory lap on 05/02/2020 with noted ruptured L ovary and abdominal abscess. Pt stated she was having pain with episodes of coughing. Has not had a BM yet and states that she has not passed flatus yet. States she has been tolerating the clear liquid diet, has been up ambulating as well. Washaving some wheezing and stated that she has a Hx of asthma and was also told she had a small component of COPD. Does not follow with a clinical nurse leader. She is a 1/2ppd smoker, sometimes 1ppd on stressful days. State she recently quit drinking alcohol so she will tackle smoking cessation at another time. Allergies Allergy/AdvReac Type Severity Reaction Status Date / Time cephalexin Allergy Severe "BLACKED Verified 05/02/20 15:29 OUT" bacitracin Allergy Intermediate RASH Verified 05/02/20 15:26 neomycin Allergy Intermediate RASH Verified 05/02/20 15:26 polymyxin B Allergy Intermediate RASH Verified 05/02/20 15:26 adhesive Allergy Mild REDDENED Verified 04/30/20 18:55 RASH latex Allergy Mild Rash Verified 04/30/20 18:55 Aminoglycosides Allergy Rash Verified 05/02/20 15:26 Home Medications Home Medications Medication Instructions Recorded Confirmed Type albuterol sulfate [ProAir HFA] 1 - 2 puff INHALATION Q6H PRN 03/27/19 05/02/20 History cyclobenzaprine 10 mg tablet 10 mg PO DAILY PRN #30 tab 08/16/19 05/02/20 Rx hydrocodone-acetaminophen [Vina] 1 tab PO Q8H PRN 05/02/20 05/02/20 History ondansetron 4 mg PO Q8H PRN 05/02/20 05/02/20 History Patient History Medical History Asthma Clostridium difficile colitis Diarrhea Laceration of left thumb Surgical History History of spinal fusion Family History Grandmother Breast cancer Myocardial infarction Denies family history of Ovarian cancer Prostate cancer Colorectal cancer Social History Smoking Status: Current every day smoker Tobacco Type: Cigarettes Cigarettes Per Day: 1/2 pack; Second Hand Exposure: Yes; Do You Dip or Chew Tobacco: No; Tobacco Cessation Education Requested by Patient: No Hx Alcohol Use: No Hx Substance Use: No Preferred Language: Romansh Communication Ability: Effective Visual Impairment: No Limitations Hearing Ability: Normal Drag Down Required: No Beliefs That Will Affect Care: None marital status: Single Current Living Situation: Alone and Family Current Living Situation Comment: x3 children current occupational status: disabled Other Information That Helps Us Care for You: No Feels Safe at Home: Yes Safety Concerns: Feels Safe At This Time Childhood Exposure to Second-Hand Smoke: Yes Dental Care, Regularly: Yes Physical Activity Frequency: Does not Exercise Seatbelt Use: always Sunscreen Use: Yes Assistive Devices: None Review of Systems Constitutional: no fever, no chills and no sweats Eyes: no worsening vision Ear, Nose, Mouth, Throat: no nasal congestion and no sore throat Respiratory: + cough; no dyspnea Cardiovascular: no chest pain, no dyspnea, no palpitations and no edema Gastrointestinal: + abdominal pain; no nausea, no vomiting, no constipation and no diarrhea/loose stools Genitourinary: no dysuria Musculoskeletal: no back pain Integumentary: no rash Neurologic: no headache(s) and no confusion Psychiatric: no confusion Physical Exam Physical Exam: General: Alert, oriented. Sitting up in bed Skin: No noted rashes or bruises, bandage on abdomen Psych: Appropriate mood and affect Neuro: No gross deficits HEENT: NC/AT Chest: Nontender to palpation. CV: RRR, Normal s1, s2. No murmurs appreciated Resp: Breath sounds with diffuse wheezing bilaterally, no increased effort of breathing. Abdomen: Soft,tender, nondistended. Bandage and drain noted. Extremities: No edema in lower extremities bilaterally. Results & Data Results & Data ([facility]) Vital Signs (Past 12 Hours) Vital Signs Temp Pulse Resp BP Pulse Ox 05/03/20 23:33 36.7 C 56 L 16 111/63 93 05/03/20 23:07 60 16 96 05/03/20 15:54 36.8 C 50 L 18 116/71 94 Resident Activity Tracking Resident Involvement: Resident Care Provided Care Provided: Adult Hospital Medicine
[2020-05-04] MEDS: HYDROmorphone INJ 1 MG/ML SYRINGE IV PRN ×4 (06:07→21:23)
[2020-05-04] MEDS: PIPERACILLIN/TAZOBACTAM 3.375 GM in DEXTROSE 5% 100 ML IV SCH ×3 (06:07→21:23)
[2020-05-04 06:48] LABS: Basophils # (auto) 0.01 K/uL (0-0.2); Basophils % (auto) 0.1 %; Eosinophils # (auto) 0.09 K/uL (0-0.5); Eosinophils % (auto) 0.8 %; Hematocrit (blood only) 32.6 % (37-47); Hemoglobin 10.9 g/dL (12.0-16.0); Immature Granulocytes # (auto) 0.02 K/uL (0.00-0.02); Immature Granulocytes % (auto) 0.2 %; Lymphocytes # (auto) 1.47 K/uL (1.2-3.4); Lymphocytes % (auto) 13.8 %; Mean Corpuscular Hemoglobin 30.8 pg (25-34); Mean Corpuscular Hgb Conc 33.4 g/dL (32-36); Mean Corpuscular Volume 92.1 fL (80-100); Mean Platelet Volume 11.4 fL (7.4-10.4); Monocytes # (auto) 0.94 K/uL (0.11-0.59); Monocytes % (auto) 8.8 %; Neutrophils # (auto) 8.14 K/uL (1.4-6.5); Neutrophils % (auto) 76.3 %; Platelet Count 194 K/uL (130-400); RDW Coefficient of Variation 12.9 % (11.5-14.5); Red Blood Count 3.54 M/uL (4.2-5.4); White Blood Count 10.67 K/uL (4.8-10.8)
[2020-05-04 07:43] LABS: Albumin Globulin Ratio 0.8 (0.9-2); Albumin Level 2.7 gm/dl (3.4-5.0); BUN Creatinine Ratio 9.2 (10-20); Bilirubin,Total 0.6 mg/dl (0.2-1); Calcium 8.5 mg/dl (8.5-10.1); Creatinine Clr Calc Pharmacy 92.3 ml/min; Est GFR (African American) 128.9; Est GFR (Non-African American) 111.2; Globulin 3.4 gm/dl (2.5-4.0); Potassium 3.1 mmol/L (3.5-5.1); Total Protein 6.1 gm/dl (6.4-8.2)
[2020-05-04] MEDS ORDERED: POTASSIUM CHLORIDE CRTAB 20 MEQ TABCR PO STA (08:39)
[2020-05-04] MEDS: oxyCODONE/ACETAMINOPHEN 5mg/325mg TAB PO PRN ×3 (10:18→20:15)
[2020-05-04] MEDS: PANTOprazole 40 MG in SYRINGE 0 ML IV SCH ×2 (11:25→12:02)
--- NOTE | 2020-05-04 12:21 | Surgery Progress Note ---
Date of Service POD 2, stable, no fever, control incision pain, not pass gas yet, LAN 160ml, clear May 04, 2020 Assessment & Plan (1) Abdominal pain, left lower quadrant: (2) Peritonitis, acute generalized: pt is a 39 year-old female who presents to Er with one month history acute abdominal pain, IMP: acute abdominal pain, peritonitis, perforation bowel,or GI tract. Plan, I recommend to do emergent exploratory laparotomy possible bowel resection or stoma, D/W benefits, risks and alternatives of the surgery, the risks- infection, bleeding, abscess. sepsis, multiple organs failure, , pt understood, she agrees with the surgery, I answered all questions, 05/03/2020 10 : 36AM doing better, WBC down to 13,000. i update information about OR finding and procedure pt had, pt understood, I answered all questions, continue treatment, OOB, repeat labs in am, will F/U 05/04/2020 12:20PM POD 2 doing fine, continue treatment, correct low K, international project engineer surgeon cover this weekend, thanks, (3) Bowel perforation: Admission and Anticipated Discharge Date Admission Date: May 02, 2020 Review of Systems Constitutional: as per Subjective / HPI Eyes: as per Subjective / HPI Ear, Nose, Mouth, Throat: as per Subjective / HPI Respiratory: as per Subjective / HPI marijuana use Cardiovascular: as per Subjective / HPI Gastrointestinal: as per Subjective / HPI Genitourinary: as per Subjective / HPI Musculoskeletal: as per Subjective / HPI back pain Integumentary: as per Subjective / HPI Neurologic: as per Subjective / HPI Psychiatric: as per Subjective / HPI depression Endocrine: as per Subjective / HPI Hematologic / Lymphatic: as per Subjective / HPI Physical Exam Constitutional: WD/WN, vitals as above well developed, well nourished, + acute distress and + ill appearing Eyes: PERRL, conjunctivae normal, anicteric sclerae ENMT: external ear and nose normal, oropharynx normal Neck: trachea midline, no thyromegaly Respiratory: normal respiratory effort, lungs clear to auscultation Cardiovascular: RRR, no murmur, no edema Rate/Rhythm: regular rate and regular rhythm Heart Sounds: normal S1 and normal S2 Gastrointestinal (Abdomen): Percussion/Palpation: abdomen soft (mild tenderness at incision site, no redness, BS +) Musculoskeletal: no cyanosis or clubbing, extremities motor strength 5/5 Skin: no rashes, warm and dry Neurologic: awake Psychiatric: Orientation: alert and oriented x 3 Results & Data ([facility]) Vital Signs (Past 12 Hours) Vital Signs Temp Pulse Resp BP Pulse Ox 05/04/20 06:58 36.7 C 59 L 16 94/60 L 97 05/04/20 03:09 36.4 C L 52 L 16 106/66 96 Laboratory Results Abnormal lab results 05/04/20 05/04/20 Range/Units 05:53 05:53 RBC 3.54 L (4.2-5.4) M/uL Hgb 10.9 L (12.0-16.0) g/dL Hct 32.6 L (37-47) % MPV 11.4 H (7.4-10.4) fL Neut # (Auto) 8.14 H (1.4-6.5) K/uL Luce # (Auto) 0.94 H (0.11-0.59) K/uL Potassium 3.1 L (3.5-5.1) mmol/L Chloride 110 H (98-107) mmol/L BUN 6 L (7-18) mg/dl BUN/Creatinine Ratio 9.2 L (10-20) AST 10 L (15-37) U/L Total Protein 6.1 L (6.4-8.2) gm/dl Albumin 2.7 L (3.4-5.0) gm/dl Albumin/Globulin Ratio 0.8 L (0.9-2)
[2020-05-04] MEDS ORDERED: POTASSIUM CHLORIDE CRTAB 20 MEQ TABCR PO ONE (12:30)
--- NOTE | 2020-05-04 13:49 | Hospitalist Progress Note ---
Date of Service May 04, 2020 Assessment & Plan (1) Peritonitis, acute generalized: Secondary to ruptured ovary with abscess S/p exploratory laparotomy and drainage of abscess 05/02 Patient with significant pain and distention, no bm or flatus yet Diet and bowel regimen per surgery (2) Asthma: Stable, no exacerbation Encourage smoking cessation Duonebs prn IS (3) Hypokalemia: Corrected repeat prp am Thank you for involving us in the care of this patient, medicine will sign off at this time. Please call with any questions or concerns. Admission and Anticipated Discharge Date Admission Date: May 02, 2020 Subjective Ms. Baeza is feeling distended and painful today. Not passing gas, no bm yet. No nausea or vomiting. ROS Constitutional: no chills, aches, sweats or fever Respiratory: no sob,cough, sputum, or wheezing Cardiac: no chest pain, palpitations, edema, orthopnea or lightheadedness GI: see HPI : no dysuria or hesitancy Extremities: no joint pain or weakness Skin: no rash All other systems reviewed and negative Physical Exam Physical Exam: General: no distress Eyes: normal inspection, PERLL Respiratory: chest non tender, clear to auscultation, normal breath sounds, no respiratory distress, no accessory muscle use Cardiac: regular rate and rhythm, no rub or gallop, no murmur, no edema, no jvd GI/: hypoactive bowel sounds, abdomen tender and distended Extremities: normal range of motion, normal strength, non tender Neuro/Psych: alert and oriented x 3, normal mood and affect Skin: normal color, dry Results & Data Results & Data ([facility]) Vital Signs (Past 12 Hours) Vital Signs Temp Pulse Resp BP Pulse Ox 05/04/20 06:58 36.7 C 59 L 16 94/60 L 97 05/04/20 03:09 36.4 C L 52 L 16 106/66 96 PG Care Time/CCT Total # of Minutes Spent Total Time Spent with Patient: Total time spent is greater than 50% in coordination of care (as documented) at patient's floor/unit and/or counseling patient: Coding Level of Care Code 06099 Subseq Hosp Care Lvl 2 Diagnoses Peritonitis, acute generalized K65.0 Asthma J45.909 Hypokalemia E87.6
[2020-05-04] MEDS: METOCLOPRAMIDE HCL 10 MG TABLET PO SCH ×2 (14:00→21:24)
[2020-05-04] MEDS: POTASSIUM CHLORIDE 10 MEQ TABCR PO SCH (20:15)
[2020-05-04] MEDS: ALBUT/IPRATROP 3MG/0.5MG NEB 3 ML VIAL NEB PRN (21:38)
--- NOTE | 2020-05-04 23:00 | Billing Data ---
Date of Service May 04, 2020 Coding Level of Care Code 83722 Inpt Consult Level 3
[2020-05-05] MEDS: HYDROmorphone INJ 1 MG/ML SYRINGE IV PRN ×4 (04:04→21:38)
[2020-05-05] MEDS: PIPERACILLIN/TAZOBACTAM 3.375 GM in DEXTROSE 5% 100 ML IV SCH ×3 (05:36→21:34)
[2020-05-05] MEDS: ONDANSETRON 4 MG OD TAB PO PRN ×2 (07:01→22:07)
[2020-05-05 07:24] LABS: Basophils # (auto) 0.02 K/uL (0-0.2); Basophils % (auto) 0.2 %; Eosinophils % (auto) 2.1 %; Hematocrit (blood only) 39.2 % (37-47); Hemoglobin 12.9 g/dL (12.0-16.0); Immature Granulocytes # (auto) 0.03 K/uL (0.00-0.02); Immature Granulocytes % (auto) 0.3 %; Lymphocytes # (auto) 1.28 K/uL (1.2-3.4); Lymphocytes % (auto) 13.2 %; Mean Corpuscular Hemoglobin 30.6 pg (25-34); Mean Corpuscular Hgb Conc 32.9 g/dL (32-36); Mean Corpuscular Volume 93.1 fL (80-100); Mean Platelet Volume 11.2 fL (7.4-10.4); Monocytes # (auto) 1.08 K/uL (0.11-0.59); Monocytes % (auto) 11.1 %; Neutrophils # (auto) 7.08 K/uL (1.4-6.5); Neutrophils % (auto) 73.1 %; Platelet Count 211 K/uL (130-400); RDW Standard Deviation 44.3 fL (36.4-46.3); Red Blood Count 4.21 M/uL (4.2-5.4); White Blood Count 9.69 K/uL (4.8-10.8)
--- NOTE | 2020-05-05 07:35 | Surgery Progress Note ---
Date of Service May 05, 2020 Assessment & Plan (1) Peritonitis, acute generalized: -pt. s/p ex lap for intra-abdominal abscess -operative culture grew pansensitive E.coli--pt. currently receiving zosyn -will continue diet advancement as bowel function returns -continue pain control and ambulation as above. pt slowly feeling better each day. no bowel fx yet. will slowly advance diet. Admission and Anticipated Discharge Date Admission Date: May 02, 2020 Subjective Pt. doing well. She is passing flatus but no BM. She has been ambulating in hallway. No N/V. Physical Exam Respiratory: normal respiratory effort; no respiratory distress and no labored breathing Gastrointestinal (Abdomen): Percussion/Palpation: + abdomen tender LAN in place Results & Data ([facility]) Vital Signs (Past 12 Hours) Vital Signs Temp Pulse Resp BP BP Pulse Ox 05/05/20 07:06 36.4 C L 64 16 109/70 100 05/04/20 23:20 36.6 C 78 20 94/55 L 98 05/04/20 21:39 66 18 96 PG Care Time/CCT Total # of Minutes Spent Total Time Spent with Patient: Total time spent is greater than 50% in coordination of care (as documented) at patient's floor/unit and/or counseling patient: Coding Level of Care Code None Diagnoses Peritonitis, acute generalized K65.0
[2020-05-05 07:46] LABS: BUN Creatinine Ratio 6.1 (10-20); Calcium 8.8 mg/dl (8.5-10.1); Creatinine Clr Calc Pharmacy 88.5 ml/min; Potassium 3.2 mmol/L (3.5-5.1)
[2020-05-05 07:48] LABS: Albumin Globulin Ratio 0.8 (0.9-2); Globulin 3.9 gm/dl (2.5-4.0); Total Protein 6.9 gm/dl (6.4-8.2)
[2020-05-05] MEDS: oxyCODONE/ACETAMINOPHEN 5mg/325mg TAB PO PRN ×3 (07:59→19:32)
[2020-05-05] MEDS: POTASSIUM CHLORIDE 10 MEQ TABCR PO SCH ×2 (07:59→20:38)
[2020-05-05] MEDS ORDERED: POTASSIUM CHLORIDE CRTAB 20 MEQ TABCR PO STA (08:29)
[2020-05-05] MEDS: PANTOprazole 40 MG in SYRINGE 0 ML IV SCH (11:12)
[2020-05-06] MEDS: oxyCODONE/ACETAMINOPHEN 5mg/325mg TAB PO PRN ×5 (01:19→23:40)
[2020-05-06] MEDS: PIPERACILLIN/TAZOBACTAM 3.375 GM in DEXTROSE 5% 100 ML IV SCH ×3 (06:19→21:28)
--- NOTE | 2020-05-06 06:24 | Surgery Progress Note ---
Date of Service May 06, 2020 Assessment & Plan (1) Peritonitis, acute generalized: -pt. s/p ex lap for intra-abdominal abscess -operative culture grew pansensitive E.coli--pt. currently receiving zosyn: -once oral intake reliable will transition to oral antibiotic (augmentin or cipro will cover isolated organism) -will continue slow advancement of diet advancement as bowel function returns -continue pain control and ambulation as above. +multiple loose bm's yesterday. no new complaints. LAN serous. will advance diet. d/c planning Admission and Anticipated Discharge Date Admission Date: May 02, 2020 Subjective Pt. reports incisional pain. She is passing flatus and had a small BM yesterday. No N/V or worsening pain with full liquids. She notes she feels hungry. Physical Exam Constitutional: well developed and well nourished; no acute distress Gastrointestinal (Abdomen): soft and non-distended; pain noted with palpation; BS are hypoactive Results & Data ([facility]) Vital Signs (Past 12 Hours) Vital Signs Temp Pulse Resp BP Pulse Ox 05/05/20 23:49 36.5 C 60 16 100/62 96 PG Care Time/CCT Total # of Minutes Spent Total Time Spent with Patient: Total time spent is greater than 50% in coordin ation of care (as documented) at patient's floor/unit and/or counseling patient: Coding Level of Care Code None Diagnoses Peritonitis, acute generalized K65.0
[2020-05-06] MEDS: ALBUT/IPRATROP 3MG/0.5MG NEB 3 ML VIAL NEB PRN (07:24)
[2020-05-06] MEDS: POTASSIUM CHLORIDE 10 MEQ TABCR PO SCH ×2 (08:59→21:26)
[2020-05-06] MEDS: CYCLOBENZAPRINE HCL 10 MG TAB PO PRN (10:30)
[2020-05-06] MEDS: PANTOprazole 40 MG in SYRINGE 0 ML IV SCH (11:07)
[2020-05-07] MEDS: CYCLOBENZAPRINE HCL 10 MG TAB PO PRN (01:03)
[2020-05-07] MEDS: PIPERACILLIN/TAZOBACTAM 3.375 GM in DEXTROSE 5% 100 ML IV SCH (06:10)
[2020-05-07] MEDS: oxyCODONE/ACETAMINOPHEN 5mg/325mg TAB PO PRN ×2 (08:08→12:08)
[2020-05-07] MEDS: POTASSIUM CHLORIDE 10 MEQ TABCR PO SCH (08:09)
[2020-05-07] MEDS: PANTOprazole 40 MG in SYRINGE 0 ML IV SCH (12:05)
--- NOTE | 2020-05-07 12:05 | Surgery Progress Note ---
Date of Service doing fine, less abdominal pain, no nausea, no vomiting, no fever, LAN 30ml clear May 07, 2020 Assessment & Plan (1) Abdominal pain, left lower quadrant: (2) Peritonitis, acute generalized: pt is a 39 year-old female who presents to Er with one month history acute abdominal pain, IMP: acute abdominal pain, peritonitis, perforation bowel,or GI tract. Plan, I recommend to do emergent exploratory laparotomy possible bowel resection or stoma, D/W benefits, risks and alternatives of the surgery, the risks- infection, bleeding, abscess. sepsis, multiple organs failure, , pt understood, she agrees with the surgery, I answered all questions, 05/03/2020 10 : 36AM doing better, WBC down to 13,000. i update information about OR finding and procedure pt had, pt understood, I answered all questions, continue treatment, OOB, repeat labs in am, will F/U 05/04/2020 12:20PM POD 2 doing fine, continue treatment, correct low K, deposition reporter surgeon cover this weekend, thanks, 05/07/2020 12:04PM doing fine, discharge home today, the post -op care instruction was given, F/U id 1 week, (3) Bowel perforation: Admission and Anticipated Discharge Date Admission Date: May 02, 2020 Supervising Physician Co-Signing Physician Notes Attending addendum: I have physically seen this patient, have supervised the medical residents activities, and agree with the H&P unless as otherwise noted. Assessment and Plan: Asthma/Tobacco use disorder- Duonebs every 4 hours while awake and every 2 hours when necessary. Every 4 hours as needed Incentive spirometry Smoking cessation counseling Abdominal abscess/ruptured left ovary- Seen postoperatively medically stable. History of alcohol abuse- Monitor for signs of withdrawal Remainder of orders and notations as noted Subjective Pt. reports incisional pain. She is passing flatus and had a small BM yeste rday. No N/V or worsening pain with full liquids. She notes she feels hungry. Review of Systems Constitutional: as per Subjective / HPI Eyes: as per Subjective / HPI Ear, Nose, Mouth, Throat: as per Subjective / HPI Respiratory: as per Subjective / HPI marijuana use Cardiovascular: as per Subjective / HPI Gastrointestinal: as per Subjective / HPI Genitourinary: as per Subjective / HPI Musculoskeletal: as per Subjective / HPI back pain Integumentary: as per Subjective / HPI Neurologic: as per Subjective / HPI Psychiatric: as per Subjective / HPI depression Endocrine: as per Subjective / HPI Hematologic / Lymphatic: as per Subjective / HPI Physical Exam Constitutional: WD/WN, vitals as above well developed, well nourished, + acute distress and + ill appearing Eyes: PERRL, conjunctivae normal, anicteric sclerae ENMT: external ear and nose normal, oropharynx normal Neck: trachea midline, no thyromegaly Respiratory: normal respiratory effort, lungs clear to auscultation Cardiovascular: RRR, no murmur, no edema Rate/Rhythm: regular rate and regular rhythm Heart Sounds: normal S1 and normal S2 Gastrointestinal (Abdomen): normal bowel sounds, soft, nontender, no hepatosplenomegaly Percussion/Palpation: abdomen soft (mild tenderness at incision site, no redness, BS +) Musculoskeletal: no cyanosis or clubbing, extremities motor strength 5/5 Skin: no rashes, warm and dry Neurologic: awake Psychiatric: Orientation: alert and oriented x 3 Results & Data ([facility]) Vital Signs (Past 12 Hours) Vital Signs Temp Pulse Resp BP Pulse Ox 05/07/20 07:07 37.1 C 63 16 120/75 97
--- NOTE | 2020-05-08 04:09 | Discharge Summary (DS) ---
ADMITTING DIAGNOSES: Peritonitis, possible bowel perforation. POSTOPERATIVE DIAGNOSIS: Intraabdominal cavity abscess. OPERATION: Exploratory laparotomy, drainage of intra-abdominal cavity abscess. SURGEON: Ruchi Wyman MD. DETAILS OF DISCHARGE SUMMARY: This is a 39-year-old female who presented to ED with abdominal pain. The patient had a CT scan diagnosis of a possible perforated bowel and we took the patient to the OR. We did exploratory laparotomy. In the OR, we found the patient had an intraabdomen abscess, we did drainage of the abscess, put the LAN drainage in and the patient tolerated the procedure well and later on patient transferred to recovery room and then transferred to regular floor. The patient is doing fine and today is postop day #5 and the patient is doing fine and no significant abdominal pain, no fever, no nausea, no vomiting, tolerated the regular diet. PHYSICAL EXAMINATION: VITAL SIGNS: Temperature is 37.1, respiratory rate is 16, the pulse is 63, and blood pressure 120/75. O2 saturation 97% on room air. GENERAL: The patient is alert, awake, oriented x3. HEENT: With normal limitation. NEUROLOGIC: Intact. NECK: No JVD. CHEST: Bilateral lung sounds clear. HEART: Normal S1, S2. No murmur. ABDOMEN: Soft, nondistended, no tenderness. LAN drainage intact, drainage only 20 mL clear. EXTREMITIES: No edema. The patient wanted to go home. We gave the patient postop care instructions and I will follow up the patient in 1 week to remove the LAN drainage.
== END 2020-05-07 13:53 | disposition home or self-care (01) | DRG 749 ==
LOC: ED 12:53 → OR 16:18 → 3N 18:34

== ENCOUNTER 2022-12-01 15:07 | Inpatient (IN) ==
[2022-12-01 15:41] LABS: Appearance Urine Clear (Clear); Bilirubin Urine Negative (Negative); Blood Urine Negative (Negative); Color Urine Yellow; Glucose Urine UA Negative (Negative); Ketones Urine 1+ (Negative); Leukocyte Esterase Urine Negative (Negative); Nitrite Urine Negative (Negative); Protein Urine Negative (Negative); Specific Gravity Urine 1.014 (1.000-1.030); Urobilinogen Urine Negative (Negative); pH Urine >= 9.0 (4.5-7.5)
[2022-12-01] MEDS ORDERED: ONDANSETRON INJ 2 MG/ML 2 ML VIAL IV STA (16:03)
[2022-12-01 16:16] LABS: Basophils # (auto) 0.04 K/uL (0-0.2); Basophils % (auto) 0.3 %; Eosinophils # (auto) 0.01 K/uL (0-0.50); Eosinophils % (auto) 0.1 %; Hematocrit (blood only) 40.4 % (37.0-47.0); Hemoglobin 14.2 g/dl (12.0-16.0); Immature Granulocytes # (auto) 0.06 K/uL (0.01-0.20); Immature Granulocytes % (auto) 0.4 %; Lymphocytes # (auto) 0.96 K/uL (1.2-3.4); Lymphocytes % (auto) 6.7 %; Mean Corpuscular Hemoglobin 30.3 pg (25.0-34.0); Mean Corpuscular Hgb Conc 35.1 g/dL (32.0-36.0); Mean Corpuscular Volume 86.3 fL (80.0-100.0); Mean Platelet Volume 10.7 fL (9.4-12.4); Monocytes # (auto) 0.64 K/uL (0.11-0.59); Monocytes % (auto) 4.4 %; Neutrophils # (auto) 12.68 K/uL (1.40-6.50); Neutrophils % (auto) 88.1 %; Platelet Count 239 K/uL (130-400); RDW Coefficient of Variation 12.7 % (11.5-14.5); RDW Standard Deviation 40.1 fL (36.4-46.3); Red Blood Count 4.68 M/uL (4.20-5.40); White Blood Count 14.39 K/ul (4.8-10.8)
[2022-12-01 16:28] LABS: Albumin Globulin Ratio 1.6 (0.9-2); Albumin Level 4.3 gm/dl (3.4-5.0); BUN Creatinine Ratio 10.3 (10-20); Bilirubin,Total 1.1 mg/dl (0.2-1.0); Calcium 9.4 mg/dl (8.6-10.3); Creatinine Clr Calc Pharmacy 91.9 ml/min; Est GFR (African American) 127.7 ml/min; Est GFR (Non-African American) 110.2 ml/min; Globulin 2.7 gm/dl (2.5-4.0); Potassium 3.9 mmol/L (3.5-5.1); Pregnancy Test, Serum Negative (Negative)
[2022-12-01] MEDS ORDERED: SODIUM CHLORIDE 0.9% 1000ML 1,000 ML IV ONE (16:32)
[2022-12-01 16:35] LABS: Troponin I High Sensitivity 28.7 pg/ml (0-14)
[2022-12-01] MEDS ORDERED: PROMETHAZINE 12.5 MG/50.5 ML BAG IV STA (17:52)
[2022-12-01] MEDS ORDERED: HYDROmorphone INJ 0.5 MG/0.5 ML SYR IV STA (17:52)
--- NOTE | 2022-12-01 17:59 | XRay Report ---
XR chest 1V portable HISTORY: 41 years-old Female chest pain acute chest pain COMPARISON: Chest and rib radiographs 01/15/2020, CT abdomen and pelvis 09/20/2022 TECHNIQUE: AP view of the chest FINDINGS: Cardiomediastinal and hilar silhouettes are within normal limits. No pneumothorax, pleural effusion, airspace consolidation or pulmonary edema. Bones appear grossly intact. IMPRESSION: No acute process. ACT 112: Negative or not required by law. The above report was generated using voice recognition software. It may contain grammatical, syntax o r spelling errors. Electronically signed by: Huey Ang M.D. 12/01/2022 5:58 PM
[2022-12-01] MEDS ORDERED: OPTIRAY 320 500ml IV ONE (18:53)
--- NOTE | 2022-12-01 19:30 | CT Scan Report ---
CT angio chest PE protocol, CT abd pelvis IV con only HISTORY: 41 years-old Female with chest and abd pain, elevated trop. Acute chest and abdominal pain TECHNIQUE: Multiple CTA images of the chest were obtained after the intravenous administration of 107 ml Optiray. Coronal and sagittal MIPS were obtained from the axial data set and were submitted for review. CT abdomen and pelvis with IV contrast only was also obtained. All measurements were obtaine d according to NASCET criteria. A dose lowering technique was utilized adhering to the principles of ALARA. COMPARISON: CT abdomen and pelvis 09/20/2022, chest CT 03/27/2019 FINDINGS: CTA: There is adequate opacification of the pulmonary arteries to the level of the subsegmental branches w ithout convincing evidence of acute pulmonary embolism. thoracic aorta Heart size is normal. CT CHEST: No dominant thyroid nodule is seen. Residual thymic tissue anterior mediastinum. Mild bilateral bronc hial wall thickening. Mild subpleural bleb formation within the left lung apex. No pathologically rivka nopathy by CT size criteria. There is no pneumothorax, pleural effusion or focal airspace consolidat ion. The imaged upper abdominal structures are normal. The osseous structures appear intact. CT ABDOMEN/PELVIS: No pneumatosis or pneumoperitoneum. Unremarkable spleen, pancreas, gallbladder, adrenal glands and li neymar. Patency of the hepatic and portal veins. Unremarkable kidneys. Mild nonspecific urinary bladder wall thickening. Hysterectomy. Trace free pelvic fluid. Follicular changes of the right ovary. No abd ominal aortic aneurysm. Colonic diverticulosis. Mild wall thickening of the mid sigmoid. Normal appen ihsan. Mild generalized body wall edema. No acute fracture identified. Discectomy at L5-S1 with grade 1 anterolisthesis. Posterior interbody rods and screw fusion L4-S1. IMPRESSION: 1. Unremarkable CTA of the chest. 2. No bowel obstruction or pneumoperitoneum. 3. Colonic diverticulosis. Mild wall thickening of the sigmoid colon is suspicious for acute divertic ulitis. 4. Trace free pelvic fluid. 5. Hysterectomy. ACT 112: Negative or not required by law. The above report was generated using voice recognition software. It may contain grammatical, syntax o r spelling errors. Electronically signed by: Huey Ang M.D. 12/01/2022 7:27 PM
[2022-12-01] MEDS ORDERED: metroNIDAZOLE 500 MG/100 ML BAG IV STA (20:43)
[2022-12-01] MEDS ORDERED: CIPROFLOXACIN / D5W 400 MG/200 ML BAG IV STA (20:43)
--- NOTE | 2022-12-01 22:15 | Emergency Department Note ---
Impression & Plan Acute diverticulitis, Bilateral lower abdominal pain, Nausea & vomiting, Retrosternal chest pain, Elevated troponin ED Provider Note INFORMANT: Patient ED PROVIDER(S): Cornelius Roberson MD CHIEF COMPLAINT: Abdominal pain PLAN: Disposition: Admitted Condition: Good Outpatient prescription management: none Referral: None MEDICAL DECISION MAKING: Patient presented to emergency room because of abdominal pain. Work-up was initiated. She required additional IV Zofran, IV Dilaudid, and then IV Phenergan for symptom control. Patient underwent CT imaging of the chest, abdomen and pelvis due to the elevated troponin, abdominal pain and vomiting. Patient's ECG did not reveal any acute findings. She does have septal Q waves present. Patient's CBC does show leukocytosis. Her chemistry panel LFTs are unremarkable. hCG is negative. Patient had a negative urinalysis. CT imaging of the chest is unremarkable for acute pathology. CT scan of the abdomen and pelvis is concerning for diverticulitis. Due to the patient's nausea and vomiting the diverticulitis was treated with IV Cipro and Flagyl. Patient had a listed allergy to cephalexin therefore Unasyn was not administered. I discussed further management in the hospital due to the findings and patient and family were in agreement. Consultation was made with Dr. Wick of the [facility] service. Case was discussed and diagnostics were reviewed. Patient was evaluated in the ER for further management. Discussed with survey project manager After review of the information above and other included data, I feel the patient requires admission. Triage Nursing notes reviewed and agree them. Vital Signs: reviewed and remarkable for no significant abnormalities Prior /Outside records reviewed: none Differential diagnosis: Etiologies such as gastroenteritis, food borne illness, infections, appendicitis, diverticulitis, inflammatory bowel disease, GI bleed, biliary pathology, ACS, PE, esophageal rupture, pneumothorax as well as others were entertained. Diagnostics, as interpreted by me: ECG: Twelve-lead ECG reveals sinus bradycardia 54 bpm. Septal Q waves. No ST elevation or depression. No PACs or PVCs. Cardiac Monitoring: Cardiac monitoring ordered by me: The patient was placed on continuous cardiac monitoring and observed. It revealed a normal sinus rhythm at 60 beats per minute without ectopy or evidence of dysrhythmia. Medical decision rules: none Imaging studies: CT scans of the chest abdomen and pelvis as noted above. HPI: The patient is a 41year old female who presents to the Emergency Room with complaints of abdominal pain. This started this morning and is worsening throughout the day. The patient also notes the following associated symptoms, nausea, vomiting, chest pain. The patient has been given fentanyl, aspirin, and Zofran by EMS for relieving factors. Current pain is rated as 2/10. Pain was a 10. Pt denies LOC, headache, fevers, chills, diaphoresis, visual changes, neck pain, breathing difficulties, back pain, melena, hematochezia, urinary symptoms, numbness, weakness, lymphadenopathy, rash, or other complaints. PAST MEDICAL HISTORY: See Below, arthritis PAST SURGICAL HISTORY: See Below, 2 months ago SOCIAL HISTORY: See Below, smoker HOME MEDICATIONS: See Below ALLERGIES: See Below VITALS: See Below PHYSICAL EXAMINATION: GENERAL: Awake, alert, uncomfortable-appearing, in no distress HENT: Normocephalic, atraumatic. Oropharynx unremarkable. EYES: Normal conjunctiva. Sclera non-icteric. NECK: Inspection normal. Non-tender. Supple. No nuchal rigidity. FROM. No masses. RESPIRATORY: Clear to auscultation. No wheezes. No rales. Normal respiratory effort. CARDIAC: Normal rate. Normal rhythm. No murmurs. No rubs. Extremities warm and well perfused. Pulses equal. No JVD. GI: Soft, non-distended. Bilateral lower quadrant tenderness to palpation. No r ebound but mild guarding. No masses. RECTAL: Deferred. MUSCULOSKELETAL: Atraumatic. Chest examination reveals no tenderness. The back is symmetrical on inspection without obvious abnormality. There is no CVA tenderness to palpation. No joint edema. LOWER EXTREMITIES: Calves are equal size bilaterally and non-tender. No edema. No discoloration. NEURO: Normal sensorium. No sensory or motor deficits noted. SKIN: No rash or jaundice noted. Past Med/Surg History Medical History (Updated 12/01/22 @ 22:15 by Cornelius Roberson MD) Asthma Clostridium difficile colitis Diarrhea Laceration of left thumb Surgical History (Updated 09/24/22 @ 14:34 by Shraddha Weaver MD) H/O salpingostomy 2010 History of spinal fusion lumber, 2011 S/P ectopic laparoscopic excision 2011, rt side S/P exploratory laparotomy 05/07/2020 Peritonitis, intra abdominal abscess S/P hysterectomy S/P tubal ligation Family History Grandmother Breast cancer Myocardial infarction Denies family history of Ovarian cancer Prostate cancer Colorectal cancer Social History Smoking Status: Current every day smoker Tobacco Type: Cigarettes Cigarettes Per Day: 1/2 pack; Second Hand Exposure: Yes; Do You Dip or Chew Tobacco: No; Hx Alcohol Use: No Hx Substance Use: Yes Non-Prescribed Medications: Marijuana Last Used Sub stance: Days (ago) Preferred Language: Persian Communication Ability: Effective Visual Impairment: No Limitations Hearing Ability: Normal Administrative Director Required: No Beliefs That Will Affect Care: None marital status: Single Current Living Situation: Family Current Living Situation Comment: x2 children current occupational status: disabled Feels Safe at Home: Yes Childhood Exposure to Second-Hand Smoke: Yes Diet: regular Diet Comment: regular Dental Care, Regularly: Yes Physical Activity Frequency: Does not Exercise Seatbelt Use: always Sunscreen Use: Yes Assistive Devices: Glasses Allergies Allergies Allergy/AdvReac Type Severity Reaction Status Date / Time cephalexin Allergy Severe "BLACKED Verified 09/24/22 11:09 OUT" bacitracin Allergy Intermediate RASH Verified 09/24/22 11:09 neomycin Allergy Intermediate RASH Verified 09/24/22 11:09 polymyxin B Allergy Intermediate RASH Verified 09/24/22 11:09 adhesive Allergy Mild REDDENED Verified 09/24/22 11:09 RASH latex Allergy Mild Rash Verified 09/24/22 11:09 Aminoglycosides Allergy Rash Verified 09/24/22 11:09 Home Meds Previous Rx's Medication Instructions Recorded albuterol sulfate 90 mcg/actuation 1 - 2 puff inhalation Q6H PRN 09/25/22 aerosol inhaler (ProAir HFA) Shortness Of Breath Or Wheezing #8.5 grams Results & Data (ED) Vital Signs Vital Signs - 24 hr 12/01/22 15:20 12/01/22 15:23 12/01/22 15:59 Temperature 36.9 C Temperature Source Oral Pulse Rate 65 54 L 65 Pulse Rate [Right Finger] Respiratory Rate 20 21 Blood Pressure 143/85 H 148/114 H Blood Pressure [Right Arm] Blood Pressure Mean 104 125 Blood Pressure Mean [Right Arm] Pulse Oximetry 93 100 Oxygen Delivery Method Room Air Room Air Sepsis Recent Fever Within 48 Hours No Sepsis New/Unexplained Change in Mental Status N/A Sepsis Action Taken by Nursing No Action Required 12/01/22 16:02 12/01/22 16:30 12/01/22 17:20 Temperature Temperature Source Pulse Rate 73 50 L Pulse Rate [Right Finger] 68 Respiratory Rate 24 22 17 Blood Pressure 110/81 113/74 Blood Pressure [Right Arm] 141/95 H Blood Pressure Mean 90 87 Blood Pressure Mean [Right Arm] 110 Pulse Oximetry 98 100 97 Oxygen Delivery Method Room Air Room Air Room Air Sepsis Recent Fever Within 48 Hours Sepsis New/Unexplained Change in Mental Status Sepsis Action Taken by Nursing 12/01/22 18:23 12/01/22 19:10 12/01/22 19:33 Temperature Temperature Source Pulse Rate 54 L 66 53 L Pulse Rate [Right Finger] Respiratory Rate 20 16 Blood Pressure 115/68 110/54 L Blood Pressure [Right Arm] Blood Pressure Mean 83 72 Blood Pressure Mean [Right Arm] Pulse Oximetry 98 99 Oxygen Delivery Method Room Air Room Air Sepsis Recent Fever Within 48 Hours Sepsis New/Unexplained Change in Mental Status Sepsis Action Taken by Nursing 12/01/22 20:00 12/01/22 21:32 Temperature Temperature Source Pulse Rate 55 L 54 L Pulse Rate [Right Finger] Respiratory Rate 17 15 Blood Pressure 106/61 102/52 L Blood Pressure [Right Arm] Blood Pressure Mean 76 68 Blood Pressure Mean [Right Arm] Pulse Oximetry 96 97 Oxygen Delivery Method Room Air Room Air Sepsis Recent Fever Within 48 Hours Sepsis New/Unexplained Change in Mental Status Sepsis Action Taken by Nursing Laboratory Data 12/01/22 15:58 12/01/22 15:58 Lab Results 12/01/22 12/01/22 12/01/22 Range/Units 15:27 15:58 15:58 WBC 14.39 H (4.8-10.8) K/ul RBC 4.68 (4.20-5.40) M/uL Hgb 14.2 (12.0-16.0) g/dl Hct 40.4 (37.0-47.0) % MCV 86.3 (80.0-100.0) fL MCH 30.3 (25.0-34.0) pg MCHC 35.1 (32.0-36.0) g/dL RDW Std Deviation 40.1 (36.4-46.3) fL RDW Coeff of Hector 12.7 (11.5-14.5) % Plt Count 239 (130-400) K/uL MPV 10.7 (9.4-12.4) fL Immature Gran % (Auto) 0.4 % Neut % (Auto) 88.1 % Lymph % (Auto) 6.7 % Dawes % (Auto) 4.4 % Eos % (Auto) 0.1 % Baso % (Auto) 0.3 % Neut # (Auto) 12.68 H (1.40-6.50) K/uL Lymph # (Auto) 0.96 L (1.2-3.4) K/uL Dawes # (Auto) 0.64 H (0.11-0.59) K/uL Eos # (Auto) 0.01 (0-0.50) K/uL Baso # (Auto) 0.04 (0-0.2) K/uL Immature Gran # (Auto) 0.06 (0.01-0.20) K/uL Sodium 139 (136-145) mmol/L Potassium 3.9 (3.5-5.1) mmol/L Chloride 108 H (98-107) mmol/L Carbon Dioxide 23 (21-32) mmol/L Anion Gap 8 (3-11) BUN 7 (6-23) mg/dl Creatinine 0.68 (0.6-1.2) mg/dl Est Cr Clr Drug Dosing 91.9 ml/min Est GFR ( Amer) 127.7 ml/min Est GFR (Non-Af Amer) 110.2 ml/min BUN/Creatinine Ratio 10.3 (10-20) Glucose 102 H (70-99(Fasting)) mg/dl Calcium 9.4 (8.6-10.3) mg/dl Total Bilirubin 1.1 H (0.2-1.0) mg/dl AST 13 (13-39) U/L ALT 8 (7-52) U/L Alkaline Phosphatase 44 (34-104) U/L Troponin I High Sens 28.7 H (0-14) pg/ml Total Protein 7.0 (6.0-8.3) gm/dl Albumin 4.3 (3.4-5.0) gm/dl Globulin 2.7 (2.5-4.0) gm/dl Albumin/Globulin Ratio 1.6 (0.9-2) Lipase 8 L (11-82) U/L HCG, Qual (Negative) Urine Color Yellow Urine Appearance Clear (Clear) Urine pH >= 9.0 H (4.5-7.5) Ur Specific [place] 1.014 (1.000-1.030) Urine Protein Negative (Negative) Urine Glucose (UA) Negative (Negative) Urine Ketones 1+ H (Negative) Urine Blood Negative (Negative) Urine Nitrite Negative (Negative) Urine Bilirubin Negative (Negative) Urine Urobilinogen Negative (Negative) Ur Leukocyte Esterase Negative (Negative) 12/01/22 Range/Units 15:58 WBC (4.8-10.8) K/ul RBC (4.20-5.40) M/uL Hgb (12.0-16.0) g/dl Hct (37.0-47.0) % MCV (80.0-100.0) fL MCH (25.0-34.0) pg MCHC (32.0-36.0) g/dL RDW Std Deviation (36.4-46.3) fL RDW Coeff of Hector (11.5-14.5) % Plt Count (130-400) K/uL MPV (9.4-12.4) fL Immature Gran % (Auto) % Neut % (Auto) % Lymph % (Auto) % [place] % (Auto) % Eos % (Auto) % Baso % (Auto) % Neut # (Auto) (1.40-6.50) K/uL Lymph # (Auto) (1.2-3.4) K/uL [place] # (Auto) (0.11-0.59) K/uL Eos # (Auto) (0-0.50) K/uL Baso # (Auto) (0-0.2) K/uL Immature Gran # (Auto) (0.01-0.20) K/uL Sodium (136-145) mmol/L Potassium (3.5-5.1) mmol/L Chloride (98-107) mmol/L Carbon Dioxide (21-32) mmol/L Anion Gap (3-11) BUN (6-23) mg/dl Creatinine (0.6-1.2) mg/dl Est Cr Clr Drug Dosing ml/min Est GFR ( Amer) ml/min Est GFR (Non-Af Amer) ml/min BUN/Creatinine Ratio (10-20) Glucose (70-99(Fasting)) mg/dl Calcium (8.6-10.3) mg/dl Total Bilirubin (0.2-1.0) mg/dl AST (13-39) U/L ALT (7-52) U/L Alkaline Phosphatase (34-104) U/L Troponin I High Sens (0-14) pg/ml Total Protein (6.0-8.3) gm/dl Albumin (3.4-5.0) gm/dl Globulin (2.5-4.0) gm/dl Albumin/Globulin Ratio (0.9-2) Lipase (11-82) U/L HCG, Qual Negative (Negative) Urine Color Urine Appearance (Clear) Urine pH (4.5-7.5) Ur Specific [place] (1.000-1.030) Urine Protein (Negative) Urine Glucose (UA) (Negative) Urine Ketones (Negative) Urine Blood (Negative) Urine Nitrite (Negative) Urine Bilirubin (Negative) Urine Urobilinogen (Negative) Ur Leukocyte Esterase (Negative) Administered Medications Ciprofloxacin (Cipro / D5w) 400 mg in 200 mls @ 100 mls/hr IV NOW STA; Protocol Stop: 12/01/22 22:42 Last Admin: 12/01/22 20:52 Dose: 100 mls/hr Documented By: LONNIE Discontinued Medications Hydromorphone HCl (Hydromorphone Inj 0.5 Mg/0.5 Ml Syr) 0.25 mg IV NOW STA Stop: 12/01/22 17:53 Last Admin: 12/01/22 18:16 Dose: 0.25 mg Documented By: [facility] Sodium Chloride (Nss 1000ml) 1,000 mls @ 999 mls/hr IV .Q1H1M ONE Stop: 12/01/22 17:32 Last Infusion: 12/01/22 19:34 Dose: 0 mls/hr Documented By: Infusion: 12/01/22 18:40 Dose: 999 mls/hr Documented By: [facility] Infusion: 12/01/22 17:05 Dose: 0 mls/hr Documented By: [facility] Admin: 12/01/22 16:43 Dose: 999 mls/hr Documented By: LIAT Promethazine HCl (Phenergan) 12.5 mg in 50.5 mls @ 202 mls/hr IV NOW STA Stop: 12/01/22 18:06 Last Infusion: 12/01/22 18:40 Dose: 0 mls/hr Documented By: Admin: 12/01/22 18:17 Dose: 202 mls/hr Documented By: LIAT Metronidazole (Flagyl) 500 mg in 100 mls @ 100 mls/hr IV NOW STA; Protocol Stop: 12/01/22 21:42 Last Infusion: 12/01/22 21:57 Dose: 0 mls/hr Documented By: Admin: 12/01/22 20:52 Dose: 100 mls/hr Documented By: LONNIE Ioversol (Optiray 320 500ml) 107 ml IV ONCE ONE Stop: 12/01/22 18:54 Last Admin: 12/01/22 18:54 Dose: 107 ml Documented By: THOR Ondansetron HCl (Ondansetron Inj 2 Mg/Ml 2 Ml Vial) 4 mg IV NOW STA Stop: 12/01/22 16:04 Last Admin: 12/01/22 16:07 Dose: 4 mg Documented By: LIAT Imaging Data Radiologist's Impression: Abdomen/Pelvis CT 12/01/22 16:32 CT angio chest PE protocol, CT abd pelvis IV con only HISTORY: 41 years-old Female with chest and abd pain, elevated trop. Acute chest and abdominal pain TECHNIQUE: Multiple CTA images of the chest were obtained after the intravenous administration of 107 ml Optiray. Coronal and sagittal MIPS were obtained from the axial data set and were submitted for review. CT abdomen and pelvis with IV contrast only was also obtained. All measurements were obtained according to NASCET criteria. A dose lowering technique was utilized adhering to the principles of ALARA. COMPARISON: CT abdomen and pelvis 09/20/2022, chest CT 03/27/2019 FINDINGS: CTA: There is adequate opacification of the pulmonary arteries to the level of the subsegmental branches without convincing evidence of acute pulmonary embolism. thoracic aorta Heart size is normal. CT CHEST: No dominant thyroid nodule is seen. Residual thymic tissue anterior mediastinum. Mild bilateral bronchial wall thickening. Mild subpleural bleb formation within the left lung apex. No pathologically adenopathy by CT size criteria. There is no pneumothorax, pleural effusion or focal airspace consolidation. The imaged upper abdominal structures are normal. The osseous structures appear intact. CT ABDOMEN/PELVIS: No pneumatosis or pneumoperitoneum. Unremarkable spleen, pancreas, gallbladder, adrenal glands and liver. Patency of the hepatic and portal veins. Unremarkable kidneys. Mild nonspecific urinary bladder wall thickening. Hysterectomy. Trace free pelvic fluid. Follicular changes of the right ovary. No abdominal aortic aneurysm. Colonic diverticulosis. Mild wall thickening of the mid sigmoid. Normal appendix. Mild generalized body wall edema. No acute fracture identified. Discectomy at L5-S1 with grade 1 anterolisthesis. Posterior interbody rods and screw fusion L4-S1. IMPRESSION: 1. Unremarkable CTA of the chest. 2. No bowel obstruction or pneumoperitoneum. 3. Colonic diverticulosis. Mild wall thickening of the sigmoid colon is suspicious for acute diverticulitis. 4. Trace free pelvic fluid. 5. Hysterectomy. ACT 112: Negative or not required by law. The above report was generated using voice recognition software. It may contain grammatical, syntax or spelling errors. Electronically signed by: Huey Ang M.D. 12/01/2022 7:27 PM Chest X-Ray 12/01/22 17:39 XR chest 1V portable HISTORY: 41 years-old Female chest pain acute chest pain COMPARISON: Chest and rib radiographs 01/15/2020, CT abdomen and pelvis 09/20/2022 TECHNIQUE: AP view of the chest FINDINGS: Cardiomediastinal and hilar silhouettes are within normal limits. No pneumothorax, pleural effusion, airspace consolidation or pulmonary edema. Bones appear grossly intact. IMPRESSION: No acute process. ACT 112: Negative or not required by law. The above report was generated using voice recognition software. It may contain grammatical, syntax or spelling errors. Electronically signed by: Huey Ang M.D. 12/01/2022 5:58 PM Chest CTA 12/01/22 17:52 CT angio chest PE protocol, CT abd pelvis IV con only HISTORY: 41 years-old Female with chest and abd pain, elevated trop. Acute chest and abdominal pain TECHNIQUE: Multiple CTA images of the chest were obtained after the intravenous administration of 107 ml Optiray. Coronal and sagittal MIPS were obtained from the axial data set and were submitted for review. CT abdomen and pelvis with IV contrast only was also obtained. All measurements were obtained according to NASCET criteria. A dose lowering technique was utilized adhering to the principles of ALARA. COMPARISON: CT abdomen and pelvis 09/20/2022, chest CT 03/27/2019 FINDINGS: CTA: There is adequate opacification of the pulmonary arteries to the level of the subsegmental branches without convincing evidence of acute pulmonary embolism. thoracic aorta Heart size is normal. CT CHEST: No dominant thyroid nodule is seen. Residual thymic tissue anterior mediastinum. Mild bilateral bronchial wall thickening. Mild subpleural bleb formation within the left lung apex. No pathologically adenopathy by CT size criteria. There is no pneumothorax, pleural effusion or focal airspace consolidation. The imaged upper abdominal structures are normal. The osseous structures appear intact. CT ABDOMEN/PELVIS: No pneumatosis or pneumoperitoneum. Unremarkable spleen, pancreas, gallbladder, adrenal glands and liver. Patency of the hepatic and portal veins. Unremarkable kidneys. Mild nonspecific urinary bladder wall thickening. Hysterectomy. Trace free pelvic fluid. Follicular changes of the right ovary. No abdominal aortic aneurysm. Colonic diverticulosis. Mild wall thickening of the mid sigmoid. Normal appendix. Mild generalized body wall edema. No acute fracture identified. Discectomy at L5-S1 with grade 1 anterolisthesis. Posterior interbody rods and screw fusion L4-S1. IMPRESSION: 1. Unremarkable CTA of the chest. 2. No bowel obstruction or pneumoperitoneum. 3. Colonic diverticulosis. Mild wall thickening of the sigmoid colon is suspicious for acute diverticulitis. 4. Trace free pelvic fluid. 5. Hysterectomy. ACT 112: Negative or not required by law. The above report was generated using voice recognition software. It may contain grammatical, syntax or spelling errors. Electronically signed by: Huey Ang M.D. 12/01/2022 7:27 PM Discharge Plan Visit Data Chief Complaint: Abdominal Pain Stated Complaint: AB PAIN ED Provider: Cornelius Roberson Discharge Problem: Acute diverticulitis, Bilateral lower abdominal pain, Nausea & vomiting, Retrosternal chest pain, Elevated troponin Forms Stand Alone Forms: [employer] Prescriptions Prescriptions: No Action albuterol sulfate [ProAir HFA] 90 mcg/actuation HFA aerosol inhaler 1 - 2 puff INHALATION Q6H PRN (Reason: Shortness Of Breath Or Wheezing) Qty: 8.5 1RF Referrals Referrals: Shraddha Weaver MD [Primary Care Provider] -
--- NOTE | 2022-12-01 23:27 | History & Physical Report ---
Date of Service December 01, 2022 Assessment & Plan (1) Acute diverticulitis: Plan: -Acute uncomplicated sigmoid diverticulitis, supported by CTAP imaging, clinical history, leukocytosis -Pt not meeting SIRS criteria on admission, currently hemodynamically stable -Continue conservative management. Deferring general surgery consult for now -IV fluid repletion -Zofran PRN nausea -Pain control- Toradol, Dilaudid PRN -Ciprofloxacin/Flagyl -NPO/bowel rest -Serial abdominal exams -Trend CBC, BMP (2) Elevated troponin: Plan: -Troponin 29 on admission, EKG w/o acute ST change but septal Q waves noted -Pt's chest pain has resolved quickly prior to admission -I do not suspect ACS, troponin elevation likely mild demand ischemia from acute diverticulitis -TTE pending -Telemetry monitoring (3) History of Clostridioides difficile colitis: Plan: -Noted history of multiple C difficile infections in past -Will carefully monitor for diarrhea in response to ciprofloxacin/Flagyl treatment (4) Anxiety disorder: Plan: -Noted history of anxiety disorder -No longer on any home medications- was on multiple psychotropic medications in past (5) Asthma: Plan: -Not in exacerbation -Albuterol PRN (6) History of candidiasis of vagina: Plan: -Noted history of yeast infections in response to abx therapy in past -Fluconazole dose given shortly after admission Plan FENGI: NPO Code status: Full DVT ppx: Lovenox Isolation: None Dispo: Medical/surgical with telemetry History of Present Illness Chief Complaint: Abdominal pain Primary Care Provider: Shraddha Weaver MD Pt is 41 yo F with PMH asthma, multiple episodes of C difficile infection, anxiety disorder presenting with abdominal pain. Pt reports onset of abdominal pain earlier this AM and progressively worsening throughout day, associated symptoms of nausea, NBNB emesis and midline substernal dull chest pain which resolved quickly. Abdominal pain is sharp, moderate severity, located periumbilically and to RLQ. She denies fever, chills, dyspnea, diarrhea, constipation. Pt arrived to ER hemodynamically stable, resting HR 50s. Initial evaluation significant for WBC 14, troponin 29, CTAP with sigmoid wall thickening suspicious for acute diverticulitis. ER interventions include Zofran, Compazine, 1L NSS bolus, ciprofloxacin/Flagyl, Dilaudid. At present, pt reports minimal abdominal pain, improved with medication. She does state she has had multiple C difficile infections in past and has had yeast infections in response to antibiotic therapy as well. Allergies Allergy/AdvReac Type Severity Reaction Status Date / Time cephalexin Allergy Severe "BLACKED Verified 09/24/22 11:09 OUT" bacitracin Allergy Intermediate RASH Verified 09/24/22 11:09 neomycin Allergy Intermediate RASH Verified 09/24/22 11:09 polymyxin B Allergy Intermediate RASH Verified 09/24/22 11:09 adhesive Allergy Mild REDDENED Verified 09/24/22 11:09 RASH latex Allergy Mild Rash Verified 09/24/22 11:09 Aminoglycosides Allergy Rash Verified 09/24/22 11:09 Home Medications Medication Instructions Recorded Confirmed Type albuterol sulfate 90 mcg/actuation 1 - 2 puff inhalation Q6H PRN 09/25/22 12/01/22 Rx aerosol inhaler (ProAir HFA) Shortness Of Breath Or Wheezing #8.5 grams Past Med/Surg History Medical History (Updated 12/01/22 @ 23:38 by Maximo Noel MD) Asthma Clostridium difficile colitis Diarrhea Laceration of left thumb Surgical History (Updated 09/24/22 @ 14:34 by Shraddha Weaver MD) H/O salpingostomy 2010 History of spinal fusion lumber, 2011 S/P ectopic laparoscopic excision 2011, rt side S/P exploratory laparotomy 05/07/2020 Peritonitis, intra abdominal abscess S/P hysterectomy S/P tubal ligation Family History Grandmother Breast cancer Myocardial infarction Denies family history of Ovarian cancer Prostate cancer Colorectal cancer Social History Smoking Status: Current every day smoker Tobacco Type: Cigarettes Cigarettes Per Day: 1/2 pack; Second Hand Exposure: Yes; Do You Dip or Chew Tobacco: No; Hx Alcohol Use: No Hx Substance Use: Yes Non-Prescribed Medications: Marijuana Last Used Substance: Days (ago) Preferred Language: Samoan Communication Ability: Effective Visual Impairment: No Limitations Hearing Ability: Normal 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 Beliefs That Will Affect Care: None marital status: Single Current Living Situation: Family Current Living Situation Comment: x2 children current occupational status: disabled Feels Safe at Home: Yes Childhood Exposure to Second-Hand Smoke: Yes Diet: regular Diet Comment: regular Dental Care, Regularly: Yes Physical Activity Frequency: Does not Exercise Seatbelt Use: always Sunscreen Use: Yes Assistive Devices: Glasses Review of Systems Review of Systems: Per HPI/Subjective Physical Exam Physical Exam: General: well-appearing, no acute distress HEENT: PERRL, EOMI, conjunctivae clear without injection, anicteric sclerae, moist mucous membranes, clear oropharynx without exudate or erythema Neck: supple, trachea midline, no thyromegaly, no JVD, no cervical lymphadenopathy CV: RRR, normal S1 and S2, no murmurs Resp: CTAB, no increased work of breathing, no crackles or wheezes Abd: Soft, mildly tender to periumbilical area and RLQ, nondistended, no guarding or rebound, no hepatosplenomegaly MSK: Normal bulk of all four extremities Neuro: AOx3, no focal motor or sensory deficits Skin: no rashes or lesions, warm and dry Ext: no LE peripheral edema or erythema, capillary refill <2s in all four extremities, 2+ LE peripheral pulses b/l Results & Data Results & Data Vital Signs (Past 12 Hours) Vital Signs Temp Pulse Pulse Resp BP BP Pulse Ox 12/01/22 23:01 57 L 16 109/68 97 12/01/22 22:30 52 L 19 96 12/01/22 22:30 110/69 12/01/22 21:32 54 L 15 102/52 L 97 12/01/22 20:00 55 L 17 106/61 96 12/01/22 19:33 53 L 16 110/54 L 99 12/01/22 19:10 66 12/01/22 18:23 54 L 20 115/68 98 12/01/22 17:20 68 17 141/95 H 97 12/01/22 16:30 50 L 22 113/74 100 12/01/22 16:02 73 24 110/81 98 12/01/22 15:59 65 21 148/114 H 100 12/01/22 15:23 54 L 12/01/22 15:20 36.9 C 65 20 143/85 H 93 O2 Del Method 12/01/22 23:01 Room Air 12/01/22 22:30 Room Air 12/01/22 22:30 12/01/22 21:32 Room Air 12/01/22 20:00 Room Air 12/01/22 19:33 Room Air 12/01/22 19:10 12/01/22 18:23 Room Air 12/01/22 17:20 Room Air 12/01/22 16:30 Room Air 12/01/22 16:02 Room Air 12/01/22 15:59 Room Air 12/01/22 15:23 12/01/22 15:20 Room Air Resident Activity Tracking Resident Involvement: Resident Care Provided Care Provided: Adult Hospital Medicine
[2022-12-02] MEDS ORDERED: HYDROmorphone INJ 0.5 MG/0.5 ML SYR IV PRN (00:51)
[2022-12-02] MEDS ORDERED: LACTATED RINGER'S 1,000 ML IV SCH (00:51)
[2022-12-02] MEDS ORDERED: ALBUTEROL HFA 8 GM INHALER INH PRN (00:51)
[2022-12-02] MEDS ORDERED: ONDANSETRON INJ 2 MG/ML 2 ML VIAL IV PRN (00:51)
[2022-12-02] MEDS ORDERED: KETOROLAC TROMETHAMINE 15 MG/ML VIAL IV PRN (00:51)
[2022-12-02] MEDS ORDERED: FLUCONAZOLE 50 MG TAB PO ONE (01:15)
[2022-12-02] MEDS: metroNIDAZOLE 500 MG/100 ML BAG IV SCH ×2 (05:27→13:48)
--- NOTE | 2022-12-02 08:01 | XCELERA ---
[id number] [id number]
--- NOTE | 2022-12-02 08:41 | Electrocardiogram Report ---
Test Reason : Blood Pressure : / mmHG Vent. Rate : 054 BPM Atrial Rate : 054 BPM P-R Int : 132 ms QRS Dur : 086 ms QT Int : 460 ms P-R-T Axes : 059 084 069 degrees QTc Int : 436 ms Sinus bradycardia Possible Old Septal infarct (cited on or before 27-MAR-2019) Abnormal ECG When compared with ECG of 27-MAR-2019 03:36, Premature atrial complexes are no longer Present Vent. rate has decreased BY 27 BPM Confirmed by Jules Dee ([id number]) on 12/02/2022 8:41:08 AM Referred By: Confirmed By:Jules Dee
[2022-12-02] MEDS ORDERED: CIPROFLOXACIN / D5W 400 MG/200 ML BAG IV SCH (09:00)
[2022-12-02] MEDS ORDERED: ENOXAPARIN INJ 40 MG/0.4 ML SYR SQ SCH (09:00)
[2022-12-02 09:04] LABS: Hematocrit (blood only) 37.5 % (37.0-47.0); Hemoglobin 12.9 g/dl (12.0-16.0); Mean Corpuscular Hemoglobin 30.4 pg (25.0-34.0); Mean Corpuscular Hgb Conc 34.4 g/dL (32.0-36.0); Mean Corpuscular Volume 88.4 fL (80.0-100.0); Mean Platelet Volume 10.8 fL (9.4-12.4); Platelet Count 210 K/uL (130-400); RDW Standard Deviation 42.2 fL (36.4-46.3); Red Blood Count 4.24 M/uL (4.20-5.40); White Blood Count 10.95 K/ul (4.8-10.8)
[2022-12-02 09:21] LABS: BUN Creatinine Ratio 10.4 (10-20); Calcium 8.5 mg/dl (8.6-10.3); Creatinine Clr Calc Pharmacy 93.3 ml/min; Est GFR (African American) 128.3 ml/min; Est GFR (Non-African American) 110.7 ml/min; Potassium 3.5 mmol/L (3.5-5.1)
--- NOTE | 2022-12-02 12:44 | Discharge Summary ---
Date of Service December 02, 2022 Admission HPI Per Admitting Provider Pt is 41 yo F with PMH asthma, multiple episodes of C difficile infection, anxiety disorder presenting with abdominal pain. Pt reports onset of abdominal pain earlier this AM and progressively worsening throughout day, associated symptoms of nausea, NBNB emesis and midline substernal dull chest pain which resolved quickly. Abdominal pain is sharp, moderate severity, located periumbilically and to RLQ. She denies fever, chills, dyspnea, diarrhea, constipation. Pt arrived to ER hemodynamically stable, resting HR 50s. Initial evaluation significant for WBC 14, troponin 29, CTAP with sigmoid wall thickening suspicio us for acute diverticulitis. ER interventions include Zofran, Compazine, 1L NSS bolus, ciprofloxacin/Flagyl, Dilaudid. At present, pt reports minimal abdominal pain, improved with medication. She spencer s state she has had multiple C difficile infections in past and has had yeast infections in response to antibiotic therapy as well. Admission Exam Per Admitting Provider General: well-appearing, no acute distress HEENT: PERRL, EOMI, conjunctivae clear without injection, anicteric sclerae, moist mucous membranes, clear oropharynx without exudate or erythema Neck: supple, trachea midline, no thyromegaly, no JVD, no cervical lymphadenopathy CV: RRR, normal S1 and S2, no murmurs Resp: CTAB, no increased work of breathing, no crackles or wheezes Abd: Soft, mildly tender to periumbilical area and RLQ, nondistended, no guarding or rebound, no hepatosplenomegaly MSK: Normal bulk of all four extremities Neuro: AOx3, no focal motor or sensory deficits Skin: no rashes or lesions, warm and dry Ext: no LE peripheral edema or erythema, capillary refill <2s in all four extremities, 2+ LE peripheral pulses b/l Principal Diagnosis sigmoid diverticulitis Discharge Exam Appearance: NAD, sitting upright in bed Respiratory occasional cough during exam; breathing room air, no conversational dyspnea, lungs CTA BL without rales/rhonchi/wheezing Cardiovascular normal S1, S2, no M/R/G Gastrointestinal (Abdomen) hyperactive bowel sounds in all quadrants, no tenderness to palpation, no rebound/guarding Skin no rashes Neurologic A/O x3 Psychiatric Normal mood and affect Discharge Data Allergies Allergy/AdvReac Type Severity Reaction Status Date / Time cephalexin Allergy Severe "BLACKED Verified 09/24/22 11:09 OUT" bacitracin Allergy Intermediate RASH Verified 09/24/22 11:09 neomycin Allergy Intermediate RASH Verified 09/24/22 11:09 polymyxin B Allergy Intermediate RASH Verified 09/24/22 11:09 adhesive Allergy Mild REDDENED Verified 09/24/22 11:09 RASH latex Allergy Mild Rash Verified 09/24/22 11:09 Aminoglycosides Allergy Rash Verified 09/24/22 11:09 Ordered Studies 12/01/22 16:32 CT Abd and Pelvis [CT abd pelvis IV con only] Stat 12/01/22 17:52 CT angio chest PE protocol Stat Laboratory Results WBC 10.95 K/ul (4.8-10.8) H 12/02/22 08:03 RBC 4.24 M/uL (4.20-5.40) 12/02/22 08:03 Hgb 12.9 g/dl (12.0-16.0) 12/02/22 08:03 Hct 37.5 % (37.0-47.0) 12/02/22 08:03 MCV 88.4 fL (80.0-100.0) 12/02/22 08:03 MCH 30.4 pg (25.0-34.0) 12/02/22 08:03 MCHC 34.4 g/dL (32.0-36.0) 12/02/22 08:03 RDW Std Deviation 42.2 fL (36.4-46.3) 12/02/22 08:03 RDW Coeff of Hector 13.0 % (11.5-14.5) 12/02/22 08:03 Plt Count 210 K/uL (130-400) 12/02/22 08:03 MPV 10.8 fL (9.4-12.4) 12/02/22 08:03 Immature Gran % (Auto) 0.4 % 12/01/22 15:58 Neut % (Auto) 88.1 % 12/01/22 15:58 Lymph % (Auto) 6.7 % 12/01/22 15:58 [place] % (Auto) 4.4 % 12/01/22 15:58 Eos % (Auto) 0.1 % 12/01/22 15:58 Baso % (Auto) 0.3 % 12/01/22 15:58 Neut # (Auto) 12.68 K/uL (1.40-6.50) H 12/01/22 15:58 Lymph # (Auto) 0.96 K/uL (1.2-3.4) L 12/01/22 15:58 [place] # (Auto) 0.64 K/uL (0.11-0.59) H 12/01/22 15:58 Eos # (Auto) 0.01 K/uL (0-0.50) 12/01/22 15:58 Baso # (Auto) 0.04 K/uL (0-0.2) 12/01/22 15:58 Immature Gran # (Auto) 0.06 K/uL (0.01-0.20) 12/01/22 15:58 Sodium 140 mmol/L (136-145) 12/02/22 08:03 Potassium 3.5 mmol/L (3.5-5.1) 12/02/22 08:03 Chloride 110 mmol/L (98-107) H 12/02/22 08:03 Carbon Dioxide 26 mmol/L (21-32) 12/02/22 08:03 Anion Gap 4 (3-11) 12/02/22 08:03 BUN 7 mg/dl (6-23) 12/02/22 08:03 Creatinine 0.67 mg/dl (0.6-1.2) 12/02/22 08:03 Est Cr Clr Drug Dosing 93.3 ml/min 12/02/22 08:03 Est GFR ( Amer) 128.3 ml/min 12/02/22 08:03 Est GFR (Non-Af Amer) 110.7 ml/min 12/02/22 08:03 BUN/Creatinine Ratio 10.4 (10-20) 12/02/22 08:03 Glucose 93 mg/dl (70-99(Fasting)) 12/02/22 08:03 Calcium 8.5 mg/dl (8.6-10.3) L 12/02/22 08:03 Total Bilirubin 1.1 mg/dl (0.2-1.0) H 12/01/22 15:58 AST 13 U/L (13-39) 12/01/22 15:58 ALT 8 U/L (7-52) 12/01/22 15:58 Alkaline Phosphatase 44 U/L (34-104) 12/01/22 15:58 Troponin I High Sens 28.7 pg/ml (0-14) H 12/01/22 15:58 Total Protein 7.0 gm/dl (6.0-8.3) 12/01/22 15:58 Albumin 4.3 gm/dl (3.4-5.0) 12/01/22 15:58 Globulin 2.7 gm/dl (2.5-4.0) 12/01/22 15:58 Albumin/Globulin Ratio 1.6 (0.9-2) 12/01/22 15:58 Lipase 8 U/L (11-82) L 12/01/22 15:58 HCG, Qual Negative (Negative) 12/01/22 15:58 Urine Color Yellow 12/01/22 15:27 Urine Appearance Clear (Clear) 12/01/22 15:27 Urine pH >= 9.0 (4.5-7.5) H 12/01/22 15:27 Ur Specific [place] 1.014 (1.000-1.030) 12/01/22 15:27 Urine Protein Negative (Negative) 12/01/22 15:27 Urine Glucose (UA) Negative (Negative) 12/01/22 15:27 Urine Ketones 1+ (Negative) H 12/01/22 15:27 Urine Blood Negative (Negative) 12/01/22 15:27 Urine Nitrite Negative (Negative) 12/01/22 15:27 Urine Bilirubin Negative (Negative) 12/01/22 15:27 Urine Urobilinogen Negative (Negative) 12/01/22 15:27 Ur Leukocyte Esterase Negative (Negative) 12/01/22 15:27 SARS-CoV-2, RNA, NAAT NEGATIVE (NEGATIVE) 12/01/22 20:11 Impressions Abdomen/Pelvis CT 12/01/22 16:32 CT angio chest PE protocol, CT abd pelvis IV con only HISTORY: 41 years-old Female with chest and abd pain, elevated trop. Acute chest and abdominal pain TECHNIQUE: Multiple CTA images of the chest were obtained after the intravenous administration of 107 ml Optiray. Coronal and sagittal MIPS were obtained from the axial data set and were submitted for review. CT abdomen and pelvis with IV contrast only was also obtained. All measurements were obtained according to NASCET criteria. A dose lowering technique was utilized adhering to the principles of ALARA. COMPARISON: CT abdomen and pelvis 09/20/2022, chest CT 03/27/2019 FINDINGS: CTA: There is adequate opacification of the pulmonary arteries to the level of the subsegmental branches without convincing evidence of acute pulmonary embolism. thoracic aorta Heart size is normal. CT CHEST: No dominant thyroid nodule is seen. Residual thymic tissue anterior mediastinum. Mild bilateral bronchial wall thickening. Mild subpleural bleb formation within the left lung apex. No pathologically adenopathy by CT size criteria. There is no pneumothorax, pleural effusion or focal airspace consolidation. The imaged upper abdominal structures are normal. The osseous structures appear intact. CT ABDOMEN/PELVIS: No pneumatosis or pneumoperitoneum. Unremarkable spleen, pancreas, gallbladder, adrenal glands and liver. Patency of the hepatic and portal veins. Unremarkable kidneys. Mild nonspecific urinary bladder wall thickening. Hysterectomy. Trace free pelvic fluid. Follicular changes of the right ovary. No abdominal aortic aneurysm. Colonic diverticulosis. Mild wall thickening of the mid sigmoid. Normal appendix. Mild generalized body wall edema. No acute fracture identified. Discectomy at L5-S1 with grade 1 anterolisthesis. Posterior interbody rods and screw fusion L4-S1. IMPRESSION: 1. Unremarkable CTA of the chest. 2. No bowel obstruction or pneumoperitoneum. 3. Colonic diverticulosis. Mild wall thickening of the sigmoid colon is suspicious for acute diverticulitis. 4. Trace free pelvic fluid. 5. Hysterectomy. ACT 112: Negative or not required by law. The above report was generated using voice recognition software. It may contain grammatical, syntax or spelling errors. Electronically signed by: Huey Ang M.D. 12/01/2022 7:27 PM Chest X-Ray 12/01/22 17:39 XR chest 1V portable HISTORY: 41 years-old Female chest pain acute chest pain COMPARISON: Chest and rib radiographs 01/15/2020, CT abdomen and pelvis 09/20/2022 TECHNIQUE: AP view of the chest FINDINGS: Cardiomediastinal and hilar silhouettes are within normal limits. No pneumothorax, pleural effusion, airspace consolidation or pulmonary edema. Bones appear grossly intact. IMPRESSION: No acute process. ACT 112: Negative or not required by law. The above report was generated using voice recognition software. It may contain grammatical, syntax or spelling errors. Electronically signed by: Huey Ang M.D. 12/01/2022 5:58 PM Chest CTA 12/01/22 17:52 CT angio chest PE protocol, CT abd pelvis IV con only HISTORY: 41 years-old Female with chest and abd pain, elevated trop. Acute chest and abdominal pain TECHNIQUE: Multiple CTA images of the chest were obtained after the intravenous administration of 107 ml Optiray. Coronal and sagittal MIPS were obtained from the axial data set and were submitted for review. CT abdomen and pelvis with IV contrast only was also obtained. All measurements were obtained according to NASCET criteria. A dose lowering technique was utilized adhering to the principles of ALARA. COMPARISON: CT abdomen and pelvis 09/20/2022, chest CT 03/27/2019 FINDINGS: CTA: There is adequate opacification of the pulmonary arteries to the level of the subsegmental branches without convincing evidence of acute pulmonary embolism. thoracic aorta Heart size is normal. CT CHEST: No dominant thyroid nodule is seen. Residual thymic tissue anterior mediastinum. Mild bilateral bronchial wall thickening. Mild subpleural bleb formation within the left lung apex. No pathologically adenopathy by CT size criteria. There is no pneumothorax, pleural effusion or focal airspace consolidation. The imaged upper abdominal structures are normal. The osseous structures appear intact. CT ABDOMEN/PELVIS: No pneumatosis or pneumoperitoneum. Unremarkable spleen, pancreas, gallbladder, adrenal glands and liver. Patency of the hepatic and portal veins. Unremarkable kidneys. Mild nonspecific urinary bladder wall thickening. Hysterectomy. Trace free pelvic fluid. Follicular changes of the right ovary. No abdominal aortic aneurysm. Colonic diverticulosis. Mild wall thickening of the mid sigmoid. Normal appendix. Mild generalized body wall edema. No acute fracture identified. Discectomy at L5-S1 with grade 1 anterolisthesis. Posterior interbody rods and screw fusion L4-S1. IMPRESSION: 1. Unremarkable CTA of the chest. 2. No bowel obstruction or pneumoperitoneum. 3. Colonic diverticulosis. Mild wall thickening of the sigmoid colon is suspicious for acute diverticulitis. 4. Trace free pelvic fluid. 5. Hysterectomy. ACT 112: Negative or not required by law. The above report was generated using voice recognition software. It may contain grammatical, syntax or spelling errors. Electronically signed by: Huey Ang M.D. 12/01/2022 7:27 PM Hospital Course (1) Acute diverticulitis: Plan Ms. Baeza is 41 yo F with PMHx of asthma, multiple episodes of C difficile infection, and anxiety disorder presenting with abdominal pain. #sigmoid diverticulitis Presented with acute onset abdominal pain CTAP with sigmoid wall thickening suspicious for acute diverticulitis, WBC up to 14 Symptomatically much improved with analgesia, abx and antiemetics Prior to d/c tolerating low fiber diet, continue on discharge Initially on ciprofloxcain/Flagyl given hx of C. diff. Transition to PO Augmentin 7 day course (end 12/07) Will need outpatient colonoscopy Encouraged regular probiotic use given C. diff history #chest pain Nonexertional, resolved with analgesia/treatment for abdominal pain hsTroponin to 29. Likely demand ischemia ECG: sinus bradycardia at 54 bpm, Q waves in V1/V2 Normal echo with EF 65-70%, no wall motional abnormalities #prior C. diff infections Loose stools in hospital, given Lactobacillus 2 caps PO daily #asthma Albuterol PRN DVT prophylaxis: Lovenox 40mg sq Total Time Total Time Spent Total Time Spent (In Minutes): see attending attestation Discharge Plan Discharge Items Patient Disposition: Home - Self-Care Reason For Visit: DIVERTICULITIS Discharge Diagnosis: Diverticulitis Activity: Per Instructions section Non-emergency contact: Primary Care Provider Call non-emergency contact if: you have any medication questions and your symptoms worsen Follow-up/Referrals: Shraddha Weaver MD [Primary Care Provider] - 12/09/22 10:20 am Diet: Low Fiber Addtl Attending Provider Instructions: You are seen in the hospital for the complaint of acute abdominal pain that developed over the course of 24 hours. While you were here, you had imaging of the abdomen that had revealed diverticulitis. You were treated with antibiotics and bowel rest. Your diet was slowly titrated up to solid foods and you were able to tolerate this. For this reason we feel it is safe for you to be discharged home. You will be sent with an additional 6 days of antibiotics. This will be sent to your pharmacy. Please machine operator hop picker the probiotics from the pharmacy to take with them as this may help prevent C. Diff. In terms of your elevated troponin (marker for heart damage), this was likely elevated due to something called demand ischemia. This is when your heart works very hard to the point that it leaks some of this enzyme into the blood. An echocardiogram was performed that was normal indicating that there was no permanent damage. Please follow up with your primary care provider to discuss this. It has been a pleasure to be a part of your care and we wish you the best in your health and recovery. Stand-Alone Forms: My [facility], Smoking Cessation Medications and DC Order Prescriptions: New amoxicillin-pot clavulanate 875-125 mg tablet 1 tab PO Q12H Qty: 14 0RF Advanced Probiotic 625 mg (10 billion cell) Capsule 2 cap PO DAILY 14 Days Qty: 28 0RF Continued albuterol sulfate [ProAir HFA] 90 mcg/actuation HFA aerosol inhaler 1 - 2 puff INHALATION Q6H PRN (Reason: Shortness Of Breath Or Wheezing) Qty: 8.5 1RF Discharge Orders: Discharge Order (Routine); Ordered 12/02/22 Ordered By: Aniceto Rodriguez/Other Patient Handouts: Low-Fiber Diet, Diverticulitis Dc Admission Data Admit Date/Time: 12/01/22 23:26 Attending Provider: Michell Fonseca Admit Provider: Maximo Noel Primary Care Provider: Shraddha Weaver Other Providers: Andrade Johnson Supervising Physician Co-Signing Physician Notes Medical Student Supervision Note: I was personally present during medical student patient encounter and independently interviewed and examined the patient and verified the ty history and physical, reviewed labs and image studies, discussed the case with Aniceto Bardales and agree with the findings and care plan. No further abdominal pain. tolerated low fiber diet. No Abdominal tenderness on exam. Home with augmentin to finish 7 days of abx. shorter course due to mild presentation and h/o of recurrent c diff. Will need colonoscopy
[2022-12-02] MEDS ORDERED: ADVANCED PROBIOTIC 1250 MG CAPSULE PO SCH (12:45)
[2022-12-02] MEDS ORDERED: IBUPROFEN 600 MG TAB PO PRN (13:22)
== END 2022-12-02 16:31 | disposition home or self-care (01) | DRG 392 ==
LOC: ED 15:07 → 2W 23:26 → SUATTDRO 23:26 → 2W 12-02 00:27